=== PATIENT | male | born 1935 | race Caucasian/White ===

== ENCOUNTER → 2016-11-29 | Outpatient (CLI) | payer OTHER ==
[~2016-11-29] MED LIST: ASCA500 PO; CEPH500C PO; CHOL1000 PO; COEN75CA PO; DEXAMETHASONE SOD INJ 4 MG/ML VIAL ONE; LISI20TA3 PO; MULT-506 PO; OMEG10007 PO
== END | disposition home or self-care (01) ==
LOC: C.CPL 12:08
PROVIDERS: ATTEND Plastic Surgery
DX: Z01.810 Encounter for preprocedural cardiovascular examination (principal); Z01.812 Encounter for preprocedural laboratory examination; R00.1 Bradycardia, unspecified

== ENCOUNTER → 2016-12-09 | Day surgery (SDC) | payer OTHER ==
[2016-11-29 15:03] VITALS: BMI 23.0
[2016-12-03 11:54] VITALS: Ht 180.3 cm; Wt 75.9 kg
[~2016-12-09] VITALS: Ht 180.3 cm; Wt 75.9 kg
[~2016-12-09] MED LIST changes: +ACETAMINOPHEN 325 MG TAB PO PRN; +ATROPINE SULFATE 0.1 MG/ML 5ML SYR IV PRN; +BUPIVACAINE 0.25% 2.5MG/ML PF 10 ML VIAL INFIL ONE; +CEFAZOLIN 2000 MG/60 ML D5W IV SCH; -DEXAMETHASONE SOD INJ 4 MG/ML VIAL ONE; +EpHEDrine SULFATE INJ 50 MG/ML AMP IV PRN; +FENTANYL CITRATE INJ 50 MCG/1 ML 2 ML VIAL IV PRN; +FENTANYL CITRATE INJ 50 MCG/1 ML 2 ML VIAL ONE; +GENTIAN VIOLET TOP SOLN 60 APPLN/59 ML BTL TOP ONE; +HYDROmorphone INJ 1 MG/ML SYR IV PRN; +LACTATED RINGER'S 1000ML 1,000 ML IV SCH; +LIDOCAINE HCL 2% 2 ML VIAL (20MG/ML) ONE; +LIDOCAINE/EPINEPHRINE 1% INJ 50 ML VIAL ONE; +METOCLOPRAMIDE HCL INJ 5 MG/ML 2 ML VIAL IV PRN; +MIDAZOLAM HCL 1 MG/ML 2ML VIAL ONE; +ONDANSETRON INJ 2 MG/ML 2 ML VIAL IV PRN; +ONDANSETRON INJ 2 MG/ML 2 ML VIAL ONE; +OXYCODONE/ACETAMINOPHEN 5-325 TAB PO PRN; +PATIENT'S ALLERGY INFO NEEDS ENTERED SCH; +POVIDONE-IODINE OP SOLN 30 ML BTL ONE; +PROPOFOL IV EMULSION 10 MG/ML 20 ML VIAL IV ONE; +SODIUM BICARBONATE 4.2% INJ 10 ML SYR IV ONE; +SODIUM CHLORIDE 0.9% 1000ML 1,000 ML IV SCH
--- NOTE | 2016-12-09 06:52 | History & Physical Bridge - [place] ---
H&P Re-Evaluation Bridge Note: I have examined the patient, reviewed the History & Physical and in the interval since the performance of the History & Physical I have noted the following changes of clinical significance: No changes noted
--- NOTE | 2016-12-09 09:30 | [facility] Post Operative Brief Note ---
Immediate Operative Summary Operative Date Dec 09, 2016. Pre-Operative Diagnosis Squamous Cell Carcinoma of Skin of Face Post-Operative Diagnosis Same Procedure(s) Performed Left Forehead And Nasal Dorsum Squamous Cell Carcinomas Excision, Frozen Section, Full Thickness Graft Surgeon Dr. Pierce Manager Molecular Surgeon(s) Johan Horton PA-C Estimated Blood Loss 10 mL Findings SCC in situ left forehead, margins negative BCC nasal dorsum with positive 6 o'clock margin, final margins negative Specimens A. Squamous Cell Carcinoma Insitu Left Forehead - Suture elias 12 o'clock; sent as frozen section B. Squamous Cell Carcinoma Nasal Dorsum - Suture elias 12 o'clock; sent as frozen section C. Re-Excision 4 to 8 o'clock Nasal Dorsum - sent as frozen section Anesthesia local with sedation Complication(s) None Disposition Recovery Room / PACU
[2016-12-09 09:38] VITALS: TEMP 36.9
--- NOTE | 2016-12-09 09:39 | Discharge Instructions ---
Discharge Instructions Date of Service Dec 09, 2016. Admission Reason for Admission: Squamous Cell Ca Of Skin Of Face Discharge Discharge Diagnosis / Problem: squamous cell ca of face Discharge Goals Goal(s): Decrease discomfort Activity Recommendations Activity Limitations: per Instructions/Follow-up section ACTIVITY RECOMMENDATIONS: __Normal activities _x_No bending, lifting or straining __No driving _x_Driving allowed when you are off pain medications if you have no visual disturbances __Walking permitted __You should have help at home for ___ days DRESSINGS: __No dressings required __Keep dressings dry/in place until first office visit __Remove dressings ___ and leave dressings off __Apply ice ___ days _x_Remove outer gauze dressing tomorrow. Leave everything else in place until your office visit __Apply antibiotic ointment (Bacitracin, Neosporin, etc) to wounds 3-4 times/ day for 10 days BATHING: _x_Keep dressings dry _x_Sponge bathing permitted __Showering permitted _x_No swimming, hot tubs or soaking in a tub MEDICATIONS: Resume previous medications unless instructed otherwise by your surgeon. _x_Do not use aspirin, Motrin, Advil or Ibuprofen as these may promote bleeding. Please use Tylenol. _x_Prescription(s) provided:Endocet was provided at your last office visit. You are given a prescription for antibiotics today. Please start them today OTHER INSTRUCTIONS: __Record drain output 2-3 times per day SPECIAL CARE INSTRUCTIONS: * It is normal to have a mild fever after surgery. If your temperature is higher than 101.5 degrees F, please call the office at [phone]. * Constipation is a typical side effect of pain medication. An over-the- counter stool softener will help relieve this. * Leaking around surgical drains may occur and should not cause concern. Sometimes these drains become clogged. If this happens, remove the bulb and milk the clot out of the tube, then replace the bulb. * Drainage from wounds after liposuction is normal and should be expected. Garments will become soiled. You should protect furniture and bedding. This drainage should mostly subside within 2-3 days. Leave garments in place unless instructed to remove them. * If you have unusual drainage from a wound or are concerned you have an infection or have any questions or concerns, please call the office at [phone]. FOLLOW UP VISIT: If not already scheduled, please call the office, , when you return home after surgery to schedule an appointment to be seen in _5-7__ days. . Current Hospital Diet Patient's current hospital diet: Discharge Diet Recommended Diet: Regular Diet Procedures Procedures Performed: Left Forehead And Nasal Dorsum Squamous Cell Carcinomas Excision, Frozen Section, Full Thickness Graft Pending Studies Studies pending at discharge: yes List of pending studies: pathology Medical Emergencies . Who to Call and When: Medical Emergencies: If at any time you feel your situation is an emergency, please call 911 immediately. . Non-Emergent Contact Non-Emergency issues call your: Primary Care Provider, Surgeon . "Provider Documentation" section prepared by Kaley Horton. VTE Core Measure Inpt VTE Proph given/why not?: SCD's [place] Drug Monitoring Program Search Results: no issues identified
[2016-12-09 10:04] VITALS: BP 176/85; PULSE 72; O2SAT 98
--- NOTE | 2016-12-09 10:12 | Anesthesia Progress Nt - [facility] ---
Anesthesia Post Op Note Date & Time Dec 09, 2016 at 10:12 Vital Signs Pain Intensity: 0 Vital Signs Past 12 Hours Date Time Temp Pulse Resp B/P Pulse Ox O2 Delivery O2 Flow Rate FiO2 12/09/16 10:04 72 16 176/85 98 Room Air 12/09/16 09:38 36.9 64 18 192/83 97 Room Air 12/09/16 06:40 36.5 66 16 188/86 97 Room Air Notes Mental Status: alert / awake / arousable, participated in evaluation Pt Amnestic to Procedure: Yes Nausea / Vomiting: adequately controlled Pain: adequately controlled Airway Patency, RR, SpO2: stable & adequate BP & HR: stable & adequate Hydration State: stable & adequate Anesthetic Complications: no major complications apparent
--- NOTE | 2016-12-09 10:51 | OPERATIVE REPORT ---
DATE OF OPERATION: 12/09/2016 PREOPERATIVE DIAGNOSES: Squamous cell carcinoma in situ, left forehead; squamous cell carcinoma nasal dorsum. POSTOPERATIVE DIAGNOSES: Squamous cell carcinoma in situ, left forehead; basal cell carcinoma nasal dorsum. PROCEDURE: Excision of malignant skin lesions left forehead and nasal dorsum with frozen section and full-thickness skin graft reconstruction. SURGEON: Dr. Cele Pierce. ASBESTOS SIDING INSTALLER: Kaley Horton PA-C. ANESTHESIA: Local with sedation. COMPLICATIONS: None. INDICATION FOR PROCEDURE: The patient is a 81-year-old male with history of metastatic squamous cell carcinoma, who was referred to my office by Dr. Wolf with squamous cell carcinoma in situ of the left forehead and superficially invasive squamous cell carcinoma of the nasal dorsum with positive deep margin. He was initially referred for Mohs surgery given his history, but due to insurance constraints, he was unable to have the Mohs procedure performed. We, therefore, elected to proceed with excision with frozen section in the operating room. BRIEF DESCRIPTION OF THE PROCEDURE: The risks, benefits and alternatives of the procedure were explained to the patient who agreed and signed consent. He was identified and marked in the preoperative holding area. Surgical sites were confirmed by the patient prior to administering sedation. He was brought to the operating room where he was positioned supine and placed under sedation without incident. Surgical sites were prepped and draped sterilely. A timeout procedure was performed. I began with the squamous cell carcinoma in situ of the left forehead. The lesion was marked with a margin of clinically normal skin surrounding it. 1% lidocaine with epinephrine mixed with 0.25% Marcaine plain was used to anesthetize the area. A 15-blade scalpel made the circular skin incision. The lesion was removed with some underlying subcutaneous fat. A suture marked 12 o'clock position and the lesion was sent for frozen section. Hemostasis was achieved with electrocautery. Maximal excision diameter was 2.5 cm. Attention was then turned to the lesion of the nasal dorsum. A margin of skin surrounding the shave biopsy site and healing ulceration was marked. There was an area of excoriation inferiorly, which I was uncertain whether this was part of the lesion and so it was not initially taken at the initial excision. The excision was marked and injected with 1% lidocaine with epinephrine mixed with 0.25% Marcaine plain. A 15 blade scalpel made the incision and the lesion was removed with underlying subcutaneous fat. Of note, there was very minimal subcutaneous fat and the skin was actually quite thin in this location. Suture marked 12 o'clock and the lesion was sent for frozen section. Hemostasis was achieved with electrocautery. Frozen section results showed that the squamous cell carcinoma in situ of the left forehead had been completely excised, although there were some actinic changes in the periphery. Clinically, the patient had significant actinic damage throughout his entire face. The 6 o'clock margin was noted to be positive on the nasal dorsal lesion and this was actually in fact noted to be basal cell carcinoma. Additional specimen was sent and there was reexcision performed from the 4 to 8 o'clock margin. Maximal excision was 2 cm. Frozen section revealed there was still significant amount of basal cell carcinoma, although all of the margins were negative by at least 1.5 mm per frozen section report. Following this, I contemplated how to perform closure of these 2 lesions. While a flap might have been preferable on the nose, the patient and I had discussed the possibility of using a graft in order to allow for better clinical monitoring for recurrence. Therefore, I elected to graft both sites. The graft was marked for harvest from the left supraclavicular area. An elliptical silvia was made and 1% lidocaine with epinephrine mixed with 0.25% Marcaine plain was used to anesthetize the area. A 15 blade scalpel made the elliptical incision and the graft was removed full-thickness including dermis. The graft was removed and passed off to my physician leasing assistant who defatted graft. Hemostasis was achieved and the wound edges were able to be approximated without tension using 3-0 Vicryl interrupted dermal sutures and 3-0 Monocryl running subcuticular suture. Dermabond was applied. The grafts were inset into each recipient bed and trimmed to size. 4-0 silk sutures were used to create tie-over bolster sutures and 5-0 chromic interrupted sutures were placed in between the silk sutures. Bolsters created of Xeroform and cotton were placed and sutures were tied down. Following this, dry dressings were placed and the patient was transferred to the recovery room in satisfactory condition. Kaley Horton PA-C, was present and scrubbed throughout the entire procedure and was instrumental in assisting with defatting of the graft, donor site closure, and inset of the skin grafts. I attest to the content of the Intraoperative Record and any orders documented therein. Any exceptio ns are noted below.
== END | disposition home or self-care (01) ==
LOC: X.SURG 06:16
PROVIDERS: ATTEND Plastic Surgery
DX: C44.320 Squamous cell carcinoma of skin of unspecified parts of face (principal); C44.321 Squamous cell carcinoma of skin of nose; L57.0 Actinic keratosis; E78.5 Hyperlipidemia, unspecified; I10 Essential (primary) hypertension; Z98.890 Other specified postprocedural states; Z79.82 Long term (current) use of aspirin

== ENCOUNTER → 2018-02-05 | Outpatient (CLI) | payer OTHER ==
[~2018-02-05] MED LIST changes: -ACETAMINOPHEN 325 MG TAB PO PRN; -ATROPINE SULFATE 0.1 MG/ML 5ML SYR IV PRN; -BUPIVACAINE 0.25% 2.5MG/ML PF 10 ML VIAL INFIL ONE; -CEFAZOLIN 2000 MG/60 ML D5W IV SCH; -CEPH500C PO; -EpHEDrine SULFATE INJ 50 MG/ML AMP IV PRN; -FENTANYL CITRATE INJ 50 MCG/1 ML 2 ML VIAL IV PRN; -FENTANYL CITRATE INJ 50 MCG/1 ML 2 ML VIAL ONE; -GENTIAN VIOLET TOP SOLN 60 APPLN/59 ML BTL TOP ONE; -HYDROmorphone INJ 1 MG/ML SYR IV PRN; -LACTATED RINGER'S 1000ML 1,000 ML IV SCH; -LIDOCAINE HCL 2% 2 ML VIAL (20MG/ML) ONE; -LIDOCAINE/EPINEPHRINE 1% INJ 50 ML VIAL ONE; -METOCLOPRAMIDE HCL INJ 5 MG/ML 2 ML VIAL IV PRN; -MIDAZOLAM HCL 1 MG/ML 2ML VIAL ONE; -OMEG10007 PO; -ONDANSETRON INJ 2 MG/ML 2 ML VIAL IV PRN; -ONDANSETRON INJ 2 MG/ML 2 ML VIAL ONE; -OXYCODONE/ACETAMINOPHEN 5-325 TAB PO PRN; -PATIENT'S ALLERGY INFO NEEDS ENTERED SCH; -POVIDONE-IODINE OP SOLN 30 ML BTL ONE; -PROPOFOL IV EMULSION 10 MG/ML 20 ML VIAL IV ONE; -SODIUM BICARBONATE 4.2% INJ 10 ML SYR IV ONE; -SODIUM CHLORIDE 0.9% 1000ML 1,000 ML IV SCH
== END | disposition home or self-care (01) ==
LOC: C.PATHSPEC 17:05
PROVIDERS: ATTEND Dermatology
DX: L81.4 Other melanin hyperpigmentation (principal)

== ENCOUNTER 2022-10-22 05:51 | Inpatient (IN) ==
[2022-10-22] MEDS ORDERED: ACETAMINOPHEN 1,000 MG/100 ML VIAL IV STA (06:22)
[2022-10-22] MEDS ORDERED: ACETAMINOPHEN 1000 MG/100 ML IV IV ONE (06:23)
[2022-10-22] MEDS ORDERED: CEFEPIME 2,000 MG/20 ML VIAL IV STA (06:28)
[2022-10-22] MEDS ORDERED: VANCOMYCIN CONSULT ACTIVE PRN (06:28)
[2022-10-22] MEDS ORDERED: VANCOMYCIN HCL 1,500 MG in SODIUM CHLORIDE 0.9% 500 ML IV STA (06:28)
[2022-10-22] MEDS ORDERED: SODIUM CHLORIDE 0.9% 1000ML 1,000 ML IV SCH (06:30)
--- NOTE | 2022-10-22 06:39 | Emergency Department Note ---
Impression & Plan Fever, AMS (altered mental status), Fall, Elevated troponin ED Provider Note INFORMANT: Patient and the ED nurse who took the report from EMS ED PROVIDER(S): Ari Spencer DO CHIEF COMPLAINT: Fall, altered mental status PLAN: Disposition: Admission Condition: Stable Outpatient prescription management: none Referral: I spoke with the hospitalist, who will see the patient for admission/observation and further evaluation and consultation. MEDICAL DECISION MAKING: This is a 87-year-old male who presents to the ED via EMS from a local nursing facility. The patient reportedly fell this morning. He was also not acting his normal self. He was weak. He had a fever. Temperature here was 39.8. Oxygen saturations are 92%. He does have a mild cough on my exam. He was found to be hypertensive here today as well is mildly tachycardic. The patient is a poor hi storian and provides no specific complaints although he does answer basic questions appropriately. The patient was found to have a small abrasion in the right occipital area. No hematoma. The patient denies any headaches. His physical exam shows a systolic ejection murmur. He mild cough, no other specific findings on my exam other than some mild dry mucous membranes. The patient's EKG shows a sinus tach rate of 104. Lateral ST depressions are noted. Chest x-ray did not show acute process. CBC did not show leukocytosis or anemia. Lactic acid is negative. Procalcitonin was elevated 28.5 which is concerning for infection. Urinalysis did not show an obvious infection. Troponin is elevated at 383. This is concerning for ischemic changes given the patient's ST depressions laterally that appear to be new. Flu, COVID and RSV are negative. Exact cause of the patient's fever is unclear. He does not have abdominal tenderness. No obvious skin infection. No pneumonia or obvious u rinary tract infection. The patient was empirically treated with IV antibiotics including IV cefepime and IV vancomycin. He was given 2 L of normal saline IV. He received additional IV fluids with the antibiotics and Tylenol for more than 30 cc/kg of fluids. I did speak with the hospitalist for who will see the patient further inpatient evaluation and care. Triage Nursing notes reviewed. Vital Signs: reviewed Prior /Outside records reviewed: none Differential diagnosis: Differential includes bacterial infection, viral infection, pneumonia, UTI, cellulitis, intra-abdominal infection, injury, other. Diagnostics, as interpreted by me: 12 lead ECG: Sinus tach at a rate of 104. No ST elevation. No PVCs. Lateral ST depressions are new. Normal QTC. Cardiac Monitoring: [none] Medical decision rules: [none] Imaging studies: No acute disease. No pneumonia or pneumothorax. Procedures: none. Critical care: none. HPI: See MDM above. PAST MEDICAL HISTORY: See Below PAST SURGICAL HISTORY: See Below SOCIAL HISTORY: See Below HOME MEDICATIONS: See Below ALLERGIES: See Below VITALS: See Below PHYSICAL EXAMINATION: CONSTITUTIONAL/VITAL SIGNS: Reviewed GENERAL: Non-toxic in appearance. INTEGUMENTARY: Warm, dry, and [place]. He was in the lateral lower legs that appears chronic in nature. HEAD: Normocephalic. EYES: without scleral icterus. ENT/OROPHARYNX: clear and slightly dry. RESPIRATORY: No increased work of breathing. Lungs clear. CARDIOVASCULAR: Regular rate. Regular rhythm. CASIMIRO. GI/ABDOMEN: Soft and nontender. . EXTREMITIES: Normal NEUROLOGICAL: Intact without focal deficits. PSYCHIATRIC: Normal affect. MUSCULOSKELETAL: Normal for age. TRIAGE NURSING DOCUMENTATION REVIEWED. Past Med/Surg History Social History Smoking Status: Former smoker Feels Safe at Home: Yes Allergies Allergies Allergy/AdvReac Type Severity Reaction Status Date / Time No Known Allergies Allergy Unverified 12/09/16 06:36 Home Meds Home Medications Medication Instructions Recorded Confirmed Ascorbic Acid (Vitamin C) 1 tab PO DAILY ##0 11/29/16 CHOLECALCIFEROL (VITAMIN D3) 1 tab PO DAILY ##0 11/29/16 COENZYME Q10 (UBIDECARENONE) (CO 1 cap PO DAILY ##0 11/29/16 Q-10) LISINOPRIL (PRINIVIL) 20 mg PO HS ##0 11/29/16 Multivitamin 1 tab PO DAILY ##0 11/29/16 Results & Data (ED) Vital Signs Vital Signs - 24 hr 10/22/22 05:57 10/22/22 06:02 10/22/22 06:14 Temperature 37.2 C 39.8 C H Temperature Source Oral Axillary Pulse Rate Pulse Rate [Right Finger] 103 H Pulse Rhythm Pulse Rhythm [Right Finger] Pulse Strength [Right Finger] Respiratory Rate 22 Respiratory Effort / Characteristics Respiratory Depth Shallow Respiratory Pattern Blood Pressure [Right Arm] 172/81 H Blood Pressure Mean [Right Arm] 111 Blood Pressure Position [Right Arm] Lying Pulse Oximetry 92 Oxygen Delivery Method Room Air Oxygen Flow Rate Sepsis Recent Fever Within 48 Hours Yes Sepsis New/Unexplained Change in Mental Status Yes Sepsis Action Taken by Nursing No Action Required 10/22/22 06:47 10/22/22 06:47 10/22/22 06:48 Temperature Temperature Source Pulse Rate 88 88 Pulse Rate [Right Finger] Pulse Rhythm Regular Regular Pulse Rhythm [Right Finger] Pulse Strength [Right Finger] Respiratory Rate 20 20 Respiratory Effort / Characteristics Respiratory Depth Respiratory Pattern Blood Pressure [Right Arm] Blood Pressure Mean [Right Arm] Blood Pressure Position [Right Arm] Pulse Oximetry 92 92 93 Oxygen Delivery Method Room Air Room Air Room Air Oxygen Flow Rate 0 Sepsis Recent Fever Within 48 Hours Sepsis New/Unexplained Change in Mental Status Sepsis Action Taken by Nursing 10/22/22 06:49 10/22/22 06:57 10/22/22 07:40 Temperature 39.3 C H Temperature Source Axillary Pulse Rate Pulse Rate [Right Finger] 90 86 83 Pulse Rhythm Pulse Rhythm [Right Finger] Regular Regular Pulse Strength [Right Finger] Normal Normal Respiratory Rate 22 24 22 Respiratory Effort / Characteristics Non-Labored Spontaneous Non-Labored Respiratory Depth Normal Shallow Normal Respiratory Pattern Regular Regular Blood Pressure [Right Arm] 126/57 L 126/57 L 104/49 L Blood Pressure Mean [Right Arm] 80 80 67 Blood Pressure Position [Right Arm] Semi-fowlers Lying Pulse Oximetry 92 93 93 Oxygen Delivery Method Room Air Room Air Room Air Oxygen Flow Rate Sepsis Recent Fever Within 48 Hours Sepsis New/Unexplained Change in Mental Status Sepsis Action Taken by Nursing Laboratory Data 10/22/22 06:05 10/22/22 06:05 Lab Results 10/22/22 10/22/22 10/22/22 Range/Units 06:05 06:05 06:05 WBC 5.86 (4.8-10.8) K/ul RBC 4.62 L (4.63-6.08) M/uL Hgb 13.2 L (14.0-18.0) g/dl Hct 39.1 L (40.1-51.0) % MCV 84.6 (80.0-100.0) fL MCH 28.6 (25.0-34.0) pg MCHC 33.8 (32.0-36.0) g/dL RDW Std Deviation 42.7 (36.4-46.3) fL RDW Coeff of Jorge Luis 13.8 (11.5-14.5) % Plt Count 206 (130-400) K/uL MPV 10.3 (9.4-12.4) fL Immature Gran % (Auto) 0.5 % Neut % (Auto) 94.6 % Lymph % (Auto) 3.6 % Yell % (Auto) 1.0 % Eos % (Auto) 0.0 % Baso % (Auto) 0.3 % Neut # (Auto) 5.54 (1.4-6.5) K/uL Lymph # (Auto) 0.21 L (1.2-3.4) K/uL Yell # (Auto) 0.06 L (0.24-0.82) K/uL Eos # (Auto) 0.00 (0-0.50) K/uL Baso # (Auto) 0.02 (0-0.2) K/uL Immature Gran # (Auto) 0.03 H (0.00-0.02) K/uL PT 11.4 (9.0-12.0) Seconds INR 1.1 (0.9-1.1) APTT 26.5 (21.0-31.0) Seconds PTT Ratio 1.0 Sodium 142 (136-145) mmol/L Potassium 3.5 (3.5-5.1) mmol/L Chloride 104 (98-107) mmol/L Carbon Dioxide 28 (21-32) mmol/L Anion Gap 10 (3-11) BUN 24 H (6-23) mg/dl Creatinine 1.12 (0.6-1.4) mg/dl Est Cr Clr Drug Dosing 46.7 ml/min Est GFR ( Amer) 69.1 ml/min Est GFR (Non-Af Amer) 59.6 ml/min BUN/Creatinine Ratio 21.4 H (10-20) Glucose 100 H (70-99(Fasting)) mg/dl Lactate (0.4-2.0) mmol/L Calcium 9.0 (8.5-10.1) mg/dl Magnesium 1.5 L (1.7-2.4) mg/dl Total Bilirubin 1.3 H (0.2-1.0) mg/dl AST 25 (13-39) U/L ALT 20 (7-52) U/L Alkaline Phosphatase 110 H (34-104) U/L Troponin I High Sens 383.8 H* (0-20) pg/ml B-Natriuretic Peptide (0-100) pg/ml Total Protein 6.9 (6.0-8.3) gm/dl Albumin 3.8 (3.4-5.0) gm/dl Globulin 3.1 (2.5-4.0) gm/dl Albumin/Globulin Ratio 1.2 (0.9-2) Procalcitonin (0-0.5) ng/ml Urine Color Urine Appearance (Clear) Urine pH (4.5-7.5) Ur Specific [place] (1.000-1.030) Urine Protein (Negative) Urine Glucose (UA) (Negative) Urine Ketones (Negative) Urine Blood (Negative) Urine Nitrite (Negative) Urine Bilirubin (Negative) Urine Urobilinogen (Negative) Ur Leukocyte Esterase (Negative) Urine WBC (Auto) (0-5) /hpf Urine RBC (Auto) (0-4) /hpf U Hyaline Cast (Auto) (0-5) /lpf U Epithel Cells (Auto) (0-5) /lpf Urine Bacteria (Auto) (Negative) SARS-CoV-2 (PCR) (Negative) Influenza Type A (PCR) (Neg) Influenza Type B (PCR) (Neg) RSV (RT-PCR) (Neg) 10/22/22 10/22/22 10/22/22 Range/Units 06:05 06:05 06:05 WBC (4.8-10.8) K/ul RBC (4.63-6.08) M/uL Hgb (14.0-18.0) g/dl Hct (40.1-51.0) % MCV (80.0-100.0) fL MCH (25.0-34.0) pg MCHC (32.0-36.0) g/dL RDW Std Deviation (36.4-46.3) fL RDW Coeff of Jorge Luis (11.5-14.5) % Plt Count (130-400) K/uL MPV (9.4-12.4) fL Immature Gran % (Auto) % Neut % (Auto) % Lymph % (Auto) % Yell % (Auto) % Eos % (Auto) % Baso % (Auto) % Neut # (Auto) (1.4-6.5) K/uL Lymph # (Auto) (1.2-3.4) K/uL Yell # (Auto) (0.24-0.82) K/uL Eos # (Auto) (0-0.50) K/uL Baso # (Auto) (0-0.2) K/uL Immature Gran # (Auto) (0.00-0.02) K/uL PT (9.0-12.0) Seconds INR (0.9-1.1) APTT (21.0-31.0) Seconds PTT Ratio Sodium (136-145) mmol/L Potassium (3.5-5.1) mmol/L Chloride (98-107) mmol/L Carbon Dioxide (21-32) mmol/L Anion Gap (3-11) BUN (6-23) mg/dl Creatinine (0.6-1.4) mg/dl Est Cr Clr Drug Dosing ml/min Est GFR ( Amer) ml/min Est GFR (Non-Af Amer) ml/min BUN/Creatinine Ratio (10-20) Glucose (70-99(Fasting)) mg/dl Lactate 1.6 (0.4-2.0) mmol/L Calcium (8.5-10.1) mg/dl Magnesium (1.7-2.4) mg/dl Total Bilirubin (0.2-1.0) mg/dl AST (13-39) U/L ALT (7-52) U/L Alkaline Phosphatase (34-104) U/L Troponin I High Sens (0-20) pg/ml B-Natriuretic Peptide 502 H (0-100) pg/ml Total Protein (6.0-8.3) gm/dl Albumin (3.4-5.0) gm/dl Globulin (2.5-4.0) gm/dl Albumin/Globulin Ratio (0.9-2) Procalcitonin 28.59 H (0-0.5) ng/ml Urine Color Urine Appearance (Clear) Urine pH (4.5-7.5) Ur Specific [place] (1.000-1.030) Urine Protein (Negative) Urine Glucose (UA) (Negative) Urine Ketones (Negative) Urine Blood (Negative) Urine Nitrite (Negative) Urine Bilirubin (Negative) Urine Urobilinogen (Negative) Ur Leukocyte Esterase (Negative) Urine WBC (Auto) (0-5) /hpf Urine RBC (Auto) (0-4) /hpf U Hyaline Cast (Auto) (0-5) /lpf U Epithel Cells (Auto) (0-5) /lpf Urine Bacteria (Auto) (Negative) SARS-CoV-2 (PCR) (Negative) Influenza Type A (PCR) (Neg) Influenza Type B (PCR) (Neg) RSV (RT-PCR) (Neg) 10/22/22 10/22/22 Range/Units 06:30 06:40 WBC (4.8-10.8) K/ul RBC (4.63-6.08) M/uL Hgb (14.0-18.0) g/dl Hct (40.1-51.0) % MCV (80.0-100.0) fL MCH (25.0-34.0) pg MCHC (32.0-36.0) g/dL RDW Std Deviation (36.4-46.3) fL RDW Coeff of Jorge Luis (11.5-14.5) % Plt Count (130-400) K/uL MPV (9.4-12.4) fL Immature Gran % (Auto) % Neut % (Auto) % Lymph % (Auto) % Yell % (Auto) % Eos % (Auto) % Baso % (Auto) % Neut # (Auto) (1.4-6.5) K/uL Lymph # (Auto) (1.2-3.4) K/uL Yell # (Auto) (0.24-0.82) K/uL Eos # (Auto) (0-0.50) K/uL Baso # (Auto) (0-0.2) K/uL Immature Gran # (Auto) (0.00-0.02) K/uL PT (9.0-12.0) Seconds INR (0.9-1.1) APTT (21.0-31.0) Seconds PTT Ratio Sodium (136-145) mmol/L Potassium (3.5-5.1) mmol/L Chloride (98-107) mmol/L Carbon Dioxide (21-32) mmol/L Anion Gap (3-11) BUN (6-23) mg/dl Creatinine (0.6-1.4) mg/dl Est Cr Clr Drug Dosing ml/min Est GFR ( Amer) ml/min Est GFR (Non-Af Amer) ml/min BUN/Creatinine Ratio (10-20) Glucose (70-99(Fasting)) mg/dl Lactate (0.4-2.0) mmol/L Calcium (8.5-10.1) mg/dl Magnesium (1.7-2.4) mg/dl Total Bilirubin (0.2-1.0) mg/dl AST (13-39) U/L ALT (7-52) U/L Alkaline Phosphatase (34-104) U/L Troponin I High Sens (0-20) pg/ml B-Natriuretic Peptide (0-100) pg/ml Total Protein (6.0-8.3) gm/dl Albumin (3.4-5.0) gm/dl Globulin (2.5-4.0) gm/dl Albumin/Globulin Ratio (0.9-2) Procalcitonin (0-0.5) ng/ml Urine Color Yellow Urine Appearance Clear (Clear) Urine pH 6.0 (4.5-7.5) Ur Specific [place] 1.013 (1.000-1.030) Urine Protein Trace H (Negative) Urine Glucose (UA) Negative (Negative) Urine Ketones Negative (Negative) Urine Blood 2+ H (Negative) Urine Nitrite Negative (Negative) Urine Bilirubin Negative (Negative) Urine Urobilinogen Negative (Negative) Ur Leukocyte Esterase Negative (Negative) Urine WBC (Auto) 1-5 (0-5) /hpf Urine RBC (Auto) 10-30 H (0-4) /hpf U Hyaline Cast (Auto) 1-5 (0-5) /lpf U Epithel Cells (Auto) 5-10 H (0-5) /lpf Urine Bacteria (Auto) Negative (Negative) SARS-CoV-2 (PCR) NEGATIVE (Negative) Influenza Type A (PCR) Negative (Neg) Influenza Type B (PCR) Negative (Neg) RSV (RT-PCR) Negative (Neg) Administered Medications Vancomycin HCl 1,500 mg/ (Sodium Chloride) 530 mls @ 200 mls/hr IV NOW STA Stop: 01/24/23 09:06 Last Admin: 10/22/22 07:34 Dose: 200 mls/hr Documented By: K Discontinued Medications Acetaminophen (Acetaminophen 1000 Mg/100 Ml Iv) Confirm Administered Dose 1,000 mg IV .STK-MED ONE Stop: 10/22/22 06:24 Last Admin: 10/22/22 06:26 Dose: Not Given Documented By: Aspirin (Aspirin Chew 324 Mg) 324 mg PO NOW STA Stop: 10/22/22 07:27 Last Admin: 10/22/22 07:39 Dose: 324 mg Documented By: K Acetaminophen (Ofirmev) 1,000 mg in 100 mls @ 400 mls/hr IV NOW STA Stop: 10/22/22 06:36 Last Infusion: 10/22/22 06:46 Dose: 0 mls/hr Documented By: Admin: 10/22/22 06:25 Dose: 400 mls/hr Documented By: Sodium Chloride (Nss 1000ml) 1,000 mls @ 999 mls/hr IV .Q1H1M CARA Stop: 10/22/22 07:30 Last Admin: 10/22/22 06:53 Dose: 125 mls/hr Documented By: Cefepime HCl (Maxipime) 2,000 mg in 20 mls @ 5 mls/min IV NOW STA; Protocol Stop: 10/22/22 06:31 Last Admin: 10/22/22 06:53 Dose: 5 mls/min Documented By: Imaging Data Radiologist's Impression: Chest X-Ray 10/22/22 06:16 XR chest 1V portable HISTORY: 87 years-old Male Sepsis acute sepsis COMPARISON: PET CT 07/01/2015 TECHNIQUE: AP view of the chest FINDINGS: Cardiac silhouette is mildly enlarged. No pneumothorax, pleural effusion or overt pulmonary edema. Mild right hemidiaphragmatic elevation with chronic interstitial coarsening. Right apical opacity may represent summation density versus scarring. Degenerative changes of the shoulders and spine. Healed chronic fracture deformity of the posterolateral left eighth rib. IMPRESSION: No acute process identified. ACT 112: Negative or not required by law. The above report was generated using voice recognition software. It may contain grammatical, syntax or spelling errors. Electronically signed by: Thai Lee M.D. 10/22/2022 7:11 AM Discharge Plan Visit Data Chief Complaint: Fall Stated Complaint: Nausea, AMS ED Provider: Ari Spencer Discharge Problem: Fever, AMS (altered mental status), Fall, Elevated troponin Patient Disposition: Being Evaluated by Hospitalist Forms Stand Alone Forms: [facility] Prescriptions Prescriptions: No Action Ascorbic Acid (Vitamin C) 500 MG tablet 1 tab PO DAILY Qty: 0 CHOLECALCIFEROL (VITAMIN D3) 1,000 UNIT tablet 1 tab PO DAILY Qty: 0 COENZYME Q10 (UBIDECARENONE) (CO Q-10) 75 MG capsule 1 cap PO DAILY Qty: 0 LISINOPRIL (PRINIVIL) 20 MG tablet 20 mg PO HS Qty: 0 Multivitamin tablet 1 tab PO DAILY Qty: 0 Referrals Referrals: Priscila [email or web address] [Non-Staff] -
[2022-10-22 06:46] LABS: Hematocrit (blood only) 39.1 % (40.1-51.0); Hemoglobin 13.2 g/dl (14.0-18.0); Mean Corpuscular Hemoglobin 28.6 pg (25.0-34.0); Mean Corpuscular Hgb Conc 33.8 g/dL (32.0-36.0); Mean Corpuscular Volume 84.6 fL (80.0-100.0); Mean Platelet Volume 10.3 fL (9.4-12.4); Platelet Count 206 K/uL (130-400); RDW Coefficient of Variation 13.8 % (11.5-14.5); RDW Standard Deviation 42.7 fL (36.4-46.3); Red Blood Count 4.62 M/uL (4.63-6.08); White Blood Count 5.86 K/ul (4.8-10.8)
[2022-10-22 06:56] LABS: Albumin Level 3.8 gm/dl (3.4-5.0); Bilirubin,Total 1.3 mg/dl (0.2-1.0); INR 1.1 (0.9-1.1); Magnesium 1.5 mg/dl (1.7-2.4); Partial Thromboplastin Time 26.5 Seconds (21.0-31.0); Potassium 3.5 mmol/L (3.5-5.1); Prothrombin Time 11.4 Seconds (9.0-12.0)
[2022-10-22 07:02] LABS: Albumin Globulin Ratio 1.2 (0.9-2); BUN Creatinine Ratio 21.4 (10-20); Creatinine Clr Calc Pharmacy 46.7 ml/min; Est GFR (African American) 69.1 ml/min; Est GFR (Non-African American) 59.6 ml/min; Globulin 3.1 gm/dl (2.5-4.0); Total Protein 6.9 gm/dl (6.0-8.3)
[2022-10-22 07:08] LABS: Troponin I High Sensitivity 383.8 pg/ml (0-20)
[2022-10-22 07:09] LABS: Appearance Urine Clear (Clear); Bacteria Urine Automated Negative (Negative); Bilirubin Urine Negative (Negative); Blood Urine 2+ (Negative); Color Urine Yellow; Glucose Urine UA Negative (Negative); Ketones Urine Negative (Negative); Leukocyte Esterase Urine Negative (Negative); Nitrite Urine Negative (Negative); Protein Urine Trace (Negative); Specific Gravity Urine 1.013 (1.000-1.030); Urobilinogen Urine Negative (Negative)
--- NOTE | 2022-10-22 07:12 | XRay Report ---
XR chest 1V portable HISTORY: 87 years-old Male Sepsis acute sepsis COMPARISON: PET CT 07/01/2015 TECHNIQUE: AP view of the chest FINDINGS: Cardiac silhouette is mildly enlarged. No pneumothorax, pleural effusion or overt pulmonary edema. Mi ld right hemidiaphragmatic elevation with chronic interstitial coarsening. Right apical opacity may r epresent summation density versus scarring. Degenerative changes of the shoulders and spine. Healed c hronic fracture deformity of the posterolateral left eighth rib. IMPRESSION: No acute process identified. ACT 112: Negative or not required by law. The above report was generated using voice recognition software. It may contain grammatical, syntax o r spelling errors. Electronically signed by: Thai Lee M.D. 10/22/2022 7:11 AM
[2022-10-22 07:18] LABS: Basophils # (auto) 0.02 K/uL (0-0.2); Basophils % (auto) 0.3 %; Immature Granulocytes # (auto) 0.03 K/uL (0.00-0.02); Immature Granulocytes % (auto) 0.5 %; Lymphocytes # (auto) 0.21 K/uL (1.2-3.4); Lymphocytes % (auto) 3.6 %; Monocytes # (auto) 0.06 K/uL (0.24-0.82); Neutrophils # (auto) 5.54 K/uL (1.4-6.5); Neutrophils % (auto) 94.6 %
[2022-10-22] MEDS ORDERED: ASPIRIN CHEW 324 MG PO STA (07:26)
[2022-10-22 07:49] LABS: Influenza A virus by PCR Negative (Neg); Influenza B virus by PCR Negative (Neg); RSV by PCR Negative (Neg); SARS CoV2 RNA(COVID-19) Ceph NEGATIVE (Negative)
[2022-10-22] MEDS: SODIUM CHLORIDE 0.9% 1000ML 1,000 ML IV SCH ×4 (08:20→22:10)
[2022-10-22] MEDS: MAGNESIUM SULFATE / D5W 1 GM/100 ML BAG IV SCH ×2 (09:30→12:11)
--- NOTE | 2022-10-22 09:40 | History & Physical Report ---
Date of Service October 22, 2022 Assessment & Plan (1) Sepsis: Plan: Admit to [facility] w/ tele Patient presenting from [facility] for evaluation after fall and AMS In the ED, patient found to be febrile at 39.3, tachycardic in the low 100s, procalcitonin 28.5. BP stable, normal lactic acid Noted POLST form states Comfort Measures Only -- Dr. An discussed with patient's POA Iqra who is agreeable to have the patient admitted to treat a potential infection however would decline any invasive procedures. (2) Cholangitis: (3) Cholecystitis: Plan: CT abd/pelvis shows evidence of possible ascending cholangitis and acute cholecystitis LFTs essentially WNL Received cefepime and Vanco in the ED, will change to Zosyn and Vanco History of pancreatic adenocarcinoma s/p CBD stent 03/2022. Per CT scan, stent appears to be in good position and draining. Follow blood cultures GI and general surgery consults, case discussed with JORDAN Person and Lissa Bowers PA-C. Likely no invasive procedures per previous discussion with POA however appreciate consultants' recommendations and options. (4) Aspiration pneumonia: Plan: CT ABD/pelvis showing patchy densities within the lung bases most pronounced within the right lower lobe. This favors a pneumonia and could be secondary to aspiration. The right lower lobe bronchi are partially opacified. On [facility] Speech therapy consult (5) Elevated troponin: Plan: HS troponin 383 --> 1131 --> 1313 No reports of chest pain, EKG shows mild ST depressions in lateral leads -- ? Tachycardia induced. ST depressions resolved on repeat EKG. Likely demand ischemia in the setting of acute illness Echo does not show wall motion abnormality If troponins continue to climb, consider IV heparin and cardiology consult (6) Pancreatic adenocarcinoma: Plan: Diagnosed 03/2022 S/p common bile duct stent Declined further treatment (7) HTN (hypertension): Plan: BP controlled, continue lisinopril (8) Hypothyroidism: Plan: Update TSH Continue levothyroxine accordingly (9) Dementia: Plan: Continue donepezil DVT PROPHYLAXIS SQ Lovenox I spent a total of 75 minutes coordinating, documenting, and providing care for this patient excluding time spent in the performance of separately billed services. This included personally reviewing all current laboratories and imaging studies, medication reconciliation, outpatient chart review, and discussion with specialists. History of Present Illness Chief Complaint: Fall, altered mental status Primary Care Provider: JORDAN Tamayo 87-year-old male with PMH dementia, pancreatic adenocarcinoma, hypothyroidism, HTN, GERD, and other problems listed below who presents to the ED for evaluation after fall and altered mental status. Patient currently resides at [facility]. Due to underlying dementia, history is limited from the patient. History obtained from review of outpatient records and prison staff. Patient had an unwitnessed fall at the facility. He was noticed to have increased confusion from baseline. There was also fever, nausea, vomiting reported. EMS was called and patient was brought to the ED for further evaluation. In the ED, patient is slightly febrile at 39.3, mildly tachycardic in the low 100s. No leukocytosis, lactic acid normal. HS troponin 383, procalcitonin 28.5. No obvious infectious source identified at this time. Patient was given Tylenol, cefepime, Vanco, IVF. Allergies Allergy/AdvReac Type Severity Reaction Status Date / Time No Known Allergies Allergy Unverified 12/09/16 06:36 Home Medications Medication Instructions Recorded Confirmed Type cholecalciferol (vitamin D3) 50 50 mcg PO DAILY 10/22/22 10/22/22 History mcg (2,000 unit) tablet (Vitamin D3) donepezil 5 mg tablet 5 mg PO DAILY 10/22/22 10/22/22 History levothyroxine 50 mcg tablet 50 mcg PO DAILY 10/22/22 10/22/22 History lisinopril 5 mg tablet 5 mg PO DAILY 10/22/22 10/22/22 History mirtazapine 7.5 mg tablet 7.5 mg PO HS 10/22/22 10/22/22 History multivitamin-iron (hematinic) 1 tab PO DAILY 10/22/22 10/22/22 History pantoprazole 40 mg tablet,delayed 40 mg PO DAILY 10/22/22 10/22/22 History release potassium 99 mg tablet 99 mg PO DAILY 10/22/22 10/22/22 History tamsulosin 0.4 mg capsule 0.4 mg PO DAILY 10/22/22 10/22/22 History Past Med/Surg History Medical History Dementia GERD (gastroesophageal reflux disease) HTN (hypertension) Hypothyroidism Pancreatic adenocarcinoma Surgical History No significant past surgical history Family History Other Family history unobtainable Social History Smoking Status: Former smoker Hx Alcohol Use: No Feels Safe at Home: Yes Review of Systems Review of Systems: Unobtainable due to cognitive status Physical Exam Constitutional: WD/WN, vitals as above Eyes: PERRL, conjunctivae normal, anicteric sclerae ENMT: Ears: no external ear abnormality Nose: no external nose abnormality Mouth: + dry oral mucous membranes Respiratory: normal respiratory effort, lungs clear to auscultation Cardiovascular: Rate/Rhythm: regular rate and regular rhythm Vessels: normal peripheral pulses Extremities: + edema (+1 edema BLE) Gastrointestinal (Abdomen): normal bowel sounds, soft, nontender, no hepatosplenomegaly Musculoskeletal: Extremities: no cyanosis and no clubbing Generally weak throughout Skin: no rashes, warm and dry Chronic venous changes BLE Neurologic: PERRL, EOMI, accommodation nl, no face palsy, no dysarthria Psychiatric: Orientation: alert and oriented to person; + not oriented to place and + not oriented to time Affect: euthymic affect Results & Data Results & Data ([facility]) Vital Signs (Past 12 Hours) Vital Signs Temp Pulse Pulse Resp BP Pulse Ox O2 Del Method 10/22/22 08:20 84 19 116/55 L 93 Room Air 10/22/22 07:40 83 22 104/49 L 93 Room Air 10/22/22 06:57 39.3 C H 86 24 126/57 L 93 Room Air 10/22/22 06:49 90 22 126/57 L 92 Room Air 10/22/22 06:48 93 Room Air 10/22/22 06:47 88 20 92 Room Air 10/22/22 06:47 88 20 92 Room Air 10/22/22 06:14 39.8 C H 10/22/22 05:57 37.2 C 103 H 22 172/81 H 92 Room Air O2 Flow Rate 01/24/23 08:20 10/22/22 07:40 10/22/22 06:57 10/22/22 06:49 10/22/22 06:48 0 10/22/22 06:47 10/22/22 06:47 10/22/22 06:14 10/22/22 05:57 Laboratory Results Short CBC 10/22/22 Range/Units 06:05 WBC 5.86 (4.8-10.8) K/ul Hgb 13.2 L (14.0-18.0) g/dl Hct 39.1 L (40.1-51.0) % Plt Count 206 (130-400) K/uL BMP 10/22/22 06:05 Sodium 142 Potassium 3.5 Chloride 104 Carbon Dioxide 28 BUN 24 H Creatinine 1.12 Glucose 100 H Calcium 9.0 Liver Function 10/22/22 Range/Units 06:05 Total Bilirubin 1.3 H (0.2-1.0) mg/dl AST 25 (13-39) U/L ALT 20 (7-52) U/L Alkaline Phosphatase 110 H (34-104) U/L Albumin 3.8 (3.4-5.0) gm/dl Urine 10/22/22 Range/Units 06:30 Urine Color Yellow Urine Appearance Clear (Clear) Urine pH 6.0 (4.5-7.5) Ur Specific Swink 1.013 (1.000-1.030) Urine Protein Trace H (Negative) Urine Glucose (UA) Negative (Negative) Diagnostic Findings Chest X-Ray 10/22/22 06:16 XR chest 1V portable HISTORY: 87 years-old Male Sepsis acute sepsis COMPARISON: PET CT 07/01/2015 TECHNIQUE: AP view of the chest FINDINGS: Cardiac silhouette is mildly enlarged. No pneumothorax, pleural effusion or overt pulmonary edema. Mild right hemidiaphragmatic elevation with chronic interstitial coarsening. Right apical opacity may represent summation density versus scarring. Degenerative changes of the shoulders and spine. Healed chronic fracture deformity of the posterolateral left eighth rib. IMPRESSION: No acute process identified. ACT 112: Negative or not required by law. The above report was generated using voice recognition software. It may contain grammatical, syntax or spelling errors. Electronically signed by: Thai Lee M.D. 10/22/2022 7:[address] 10/22/22 09:13 CT head/brain wo con CLINICAL HISTORY: 87 years-old Male with fall. Acute head injury status post fall TECHNIQUE: Multiple axial CT images of the head were obtained without contrast. A dose lowering technique was utilized adhering to the principles of ALARA. CT DOSE: 1729.92 mGy.cm COMPARISON: None. FINDINGS: No acute intracranial hemorrhage, midline shift, intracranial mass, hydrocephalus, territorial ischemia or abnormal extra-axial collection. Motion degraded exam. Involutional changes with chronic microvascular ischemic disease. Cerebral vascular calcifications. The calvarium is intact. The paranasal sinuses, mastoid air cells, and middle ear cavities are clear. IMPRESSION: Motion degraded exam. No acute intracranial abnormality or calvarial fracture identified. ACT 112: Negative or not required by law. The above report was generated using voice recognition software. It may contain grammatical, syntax or spelling errors. Electronically signed by: Thai Lee M.D. 10/22/2022 10:19 AM Code Status & VTE Plan Code Status Patient is a DNR as per POLST form that has accompanied the patient. VTE Prophylaxis Plan VTE Prophylaxis will be ordered: Yes Supervising Physician Co-Signing Physician Notes Pt is a 87 y/o M with hx of Pancreatic ca s/p Cholecystoduodenostomy with stent, hypothyroidism, severe dementia, hx of aspiration admitted for recent fall with fever. Spoke to POA (Iqra Torres-friend). Per Iqra, pt is DNR/DNI. No invasive procedure (does not want to under ERCP if it is necessary). Okay with antibiotics. Pts daughter lives in [place]. PE: NAD, well developed HEENT:Dry oropharynx Lungs: CTA, no wheezing or crackles Cardiac: Normal S1/S2 with systolic murmur Abd: ND, soft, NT MSK: b/l trace pitting edema of the LE with chronic skin changes Psych: AAOx1 (only to person)- at his baseline A/P: Fever: -RSV/COVID/Flu: neg -CXR: no acute finding -UA: no obvious sign of infection - Procal is elevated but WBC is normal -will obtain BCx and UCx - start pt on Vanc and zosyn - will get CT abd ---- CT abd showed R lower lobe patchy densities, possible cholecystitis and ascending cholangitis ---- pt already on Vanc and zosyn ---- family did not want any surgical intervention or procedure. However will get GI and Surgery consult to get their recommendation so that the family can make an informed decision Elevated trop: -pt appeared dehydrated during the exam + acute infection - trop trend: 380>1130>1300 - echo showed no wall motion abnormalities thus will hold off on starting on heparin drip ----- but will trend trop S/P fall: -pt does have hx of fall in the past - denied any acute pain - CT head: no acute finding -will get PT/OT Severe dementia with hx of aspiration: -at baseline AAOx1 -does have hx of delirium Pancreatic Ca s/p Cholecystoduodenostomy with stent: -Family and POA did not want further testing or intervention Other chronic conditions: Plan as above Agree with A/P by Olesya ORTEGA
[2022-10-22] MEDS ORDERED: OPTIRAY 350 100ml IV ONE (09:52)
--- NOTE | 2022-10-22 10:20 | CT Scan Report ---
CT head/brain wo con CLINICAL HISTORY: 87 years-old Male with fall. Acute head injury status post fall TECHNIQUE: Multiple axial CT images of the head were obtained without contrast. A dose lowering tech nique was utilized adhering to the principles of ALARA. CT DOSE: 1729.92 mGy.cm COMPARISON: None. FINDINGS: No acute intracranial hemorrhage, midline shift, intracranial mass, hydrocephalus, territorial ischem ia or abnormal extra-axial collection. Motion degraded exam. Involutional changes with chronic microv ascular ischemic disease. Cerebral vascular calcifications. The calvarium is intact. The paranasal sinuses, mastoid air cells, and middle ear cavities are clear . IMPRESSION: Motion degraded exam. No acute intracranial abnormality or calvarial fracture identified . ACT 112: Negative or not required by law. The above report was generated using voice recognition software. It may contain grammatical, syntax o r spelling errors. Electronically signed by: Thai Lee M.D. 10/22/2022 10:19 AM
[2022-10-22] MEDS ORDERED: PIPERACILLIN/TAZOBACTAM 3.375 GM (over 30 mins) IV ONE (10:30)
[2022-10-22] MEDS ORDERED: ACETAMINOPHEN 325 MG TAB PO PRN (10:50)
--- NOTE | 2022-10-22 11:58 | Pharmacy Report ---
Pharmacy PK ABX Note - Date of Service October 22, 2022 - Assessment and Plan Assessment 87 year old M receiving Zosyn and Vancomycin IV for Empiric coverage due fever and procalcitonin of 29.6 on admission. Blood culture still pending. Day # 1 of antimicrobial therapy. Plan Zosyn * 3.375 g IV Q8H for Crcl > 20 ml/min Vancomycin * Loading dose: 1500 mg IV x 1 * Maintenance dose: 1250 mg IV every 24 hours * Regimen is predicted to achieve target AUC/RIOS of 400-600 mg/L.hr * Order level if therapy exceeds 48 hours Pharmacy will continue to follow and will adjust dose/frequency as necessary. Thank you. Pharmacy has transitioned to AUC monitoring for vancomycin. AUC/RIOS is the preferred PK/PD target and is associated with decreased risk of nephrotoxicity compared to traditional trough targets.
[2022-10-22] MEDS: ENOXAPARIN INJ 40 MG/0.4 ML SYR SQ SCH (12:14)
--- NOTE | 2022-10-22 14:32 | Electrocardiogram Report ---
Test Reason : Blood Pressure : / mmHG Vent. Rate : 104 BPM Atrial Rate : 104 BPM P-R Int : 138 ms QRS Dur : 082 ms QT Int : 336 ms P-R-T Axes : 065 019 077 degrees QTc Int : 441 ms Poor data quality, interpretation may be adversely affected Sinus tachycardia Nonspecific ST and T wave abnormality Abnormal ECG When compared with ECG of 29-NOV-2016 12:46, Vent. rate has increased BY [address] now depressed in Lateral leads Confirmed by Killian Hardy ([id number]) on 10/22/2022 2:32:01 PM Referred By: Confirmed By:Carmelo Hardy
--- NOTE | 2022-10-22 14:39 | Electrocardiogram Report ---
Test Reason : Blood Pressure : / mmHG Vent. Rate : 062 BPM Atrial Rate : 062 BPM P-R Int : 152 ms QRS Dur : 086 ms QT Int : 472 ms P-R-T Axes : 056 -12 037 degrees QTc Int : 479 ms Normal sinus rhythm with sinus arrhythmia Nonspecific T wave abnormality Prolonged QT Abnormal ECG When compared with ECG of 22-OCT-2022 05:56, (unconfirmed) Vent. rate has decreased BY [address] no longer depressed in Lateral leads Nonspecific T wave abnormality has replaced inverted T waves in Lateral leads Confirmed by Killian Hardy ([id number]) on 10/22/2022 2:38:57 PM Referred By: [facility] Confirmed By:Carmelo Hardy
--- NOTE | 2022-10-22 14:58 | CT Scan Report ---
ABDOMEN AND PELVIS CT WITH IV CONTRAST CT DOSE: HISTORY: sepsis, hx pancreatic cancer TECHNIQUE: Multiaxial CT images of the abdomen and pelvis were performed following the use of intrave nous contrast. A dose lowering technique was utilized adhering to the principles of ALARA. COMPARISON STUDY: Outside hospital PET/CT 07/01/2015. FINDINGS: Patchy densities within the lung bases most pronounced within the right lower lobe. This fa vors a pneumonia and could be secondary to aspiration. The right lower lobe bronchi are partially opa cified. Suboptimal evaluation of the abdomen and pelvis due to motion artifact. No pneumoperitoneum. No pneumatosis. No suspicious lytic or blastic osseous lesions. The heart is mildly enlarged. Scatter ed hypodense lesions seen within the liver some which demonstrate a small amount peripheral calcifica tion. Dominant lesion within the right hepatic dome measures 5.9 cm. These favor cysts. There is mild periportal edema. There is subtle enhancement within the central intra-/extra hepatic bile ducts bes t seen on image 124. The main portal vein appears patent. There is fullness within the pancreatic hea d which may correspond to the patient's known history of a pancreatic malignancy. However, this is no t well assessed due to the motion artifact at this location. Metallic common bile duct stent appears to be in good position. Trace pneumobilia is noted. There is also gas within the gallbladder and a fe w punctate gallstones. This mild diffuse gallbladder wall thickening with pericholecystic inflammator y change/edema. There is a cholecystoduodenal stent which appears in good position and is likely loyola nt. The main pancreatic duct is distended up to 9 mm. There is atrophy of the pancreatic tail. Bilate ral adrenal gland nodules appear similar to the prior study and measure 2.4 cm on the right and 1.9 c m on the left. Small bilateral peripelvic renal cysts are noted. No hydronephrosis. The spleen is unr emarkable. The superior mesenteric artery and vein appear patent. The bladder is decompressed by Fole y catheter. Small amount of hyperdense fluid within the bladder lumen may represent blood products/he maturia. The bladder wall diffusely thickened. The prostate gland is enlarged measuring 6.2 cm in yoana meter. No significant pelvic free fluid or pelvic lymphadenopathy. No retroperitoneal lymphadenopathy . Calcified plaque within the normal caliber abdominal aorta. Mild thickening of the seminal vesicles which may be chronic. Moderate well-formed stool seen throughout the colon. No bowel wall thickening or obstruction. Normal appendix. A few colonic diverticula. No evidence for acute diverticulitis. Th ere is mild retrocrural lymphadenopathy which is slightly progressed. The dominant right retrocrural lymph node on image 106 measures 15 x 9 mm. IMPRESSION: 1. Patchy densities within the lung bases most pronounced within the right lower lobe. This favors a pneumonia and could be secondary to aspiration. The right lower lobe bronchi are partially opacified. 2. There is fullness within the pancreatic head which may correspond to the patient's known history o f a pancreatic malignancy. However, this is not well assessed due to the motion artifact at this loca tion. 3. Mild enhancement within the central intra and extra hepatic bile ducts. This raises the possibilit y of an ascending cholangitis. 4. A metallic common bile duct stent appears in good position. There is evidence for pneumobilia. 5. Mild gallbladder wall thickening with pericholecystic inflammatory change/edema. This may represen t an acute cholecystitis. However, the gallbladder appears to be drained by the indwelling cholecysto duodenal stent which appears patent and in good position. 6. Dilated main pancreatic duct measuring up to 9 mm. 7. Bladder is decompressed by the Loza catheter. There is bladder wall thickening with a small amoun t of hyperdense material within the bladder lumen suggesting blood products/hematuria. Recommend yahaira elation with urinalysis to assess for age cystitis. 8. Mild retrocrural lymphadenopathy which has progressed. 9. Additional findings as described above. ACT 112: Negative or not required by law. Electronically signed by: Jose Alonso M.D. 10/22/2022 2:57 PM
[2022-10-22 15:50] LABS: A calco-baum cmplx NotReported Not Detected (NotDetected); Bact fragilis Not Reported Not Detected (NotDetected); C auris Not Reported Not Detected (NotDetected); CTX-M Resistant Gene Not Detected (NotDetected); Calbicans Not Reported Not Detected (NotDetected); Candida glabrata Not Reported Not Detected (NotDetected); Candida krusei Not Reported Not Detected (NotDetected); Cneoformans/gatti Not Reported Not Detected (NotDetected); Cparapsilosis Not Reported Not Detected (NotDetected); Ctropicalis Not Reported Not Detected (NotDetected); E cloacae compx Not Reported Not Detected (NotDetected); Efaecalis Not Reported Not Detected (NotDetected); Efaecium Not Reported Not Detected (NotDetected); Enterobacterales DETECTED (NotDetected); Enterobacterales Not Reported DETECTED (NotDetected); Escherichia coli Not Reported Not Detected (NotDetected); H influenzae Not Reported Not Detected (NotDetected); IMP Resistant Gene Not Detected (NotDetected); K aerogenes Not Reported DETECTED (NotDetected); KPC Resistant Gene Not Detected (NotDetected); Klebsiella aerogenes DETECTED (NotDetected); Klebsiella pneumoniae group DETECTED (NotDetected); Koxytoca Not Reported Not Detected (NotDetected); Lmonocyt Not Reported Not Detected (NotDetected); N meningitidis Not Reported Not Detected (NotDetected); NDM Resistant Gene Not Detected (NotDetected); OXA 48 Like Resistant Gene Not Detected (NotDetected); P aeruginosa Not Reported Not Detected (NotDetected); Proteus spp Not Reported Not Detected (NotDetected); Salmonella spp Not Reported Not Detected (NotDetected); Smarcescens Not Reported Not Detected (NotDetected); Staph lugdunensis Not Reported Not Detected (NotDetected); Staph spp. Not Reported Not Detected (NotDetected); Staphaureus Not Reported Not Detected (NotDetected); Staphepi Not Reported Not Detected (NotDetected); Stenmaltophilia Not Reported Not Detected (NotDetected); Strep agal(GrpB) Not Reported Not Detected (NotDetected); Strep pneum Not Reported Not Detected (NotDetected); Strep pyog (GrpA) Not Reported Not Detected (NotDetected); Strep spp Not Reported Not Detected (NotDetected); VIM Resistant Gene Not Detected (NotDetected); mcr-1 Colistin Resistant Gene Not Detected (NotDetected)
[2022-10-22] MEDS: VANCOMYCIN HCL 1,250 MG in SODIUM CHLORIDE 0.9% 250 ML IV SCH (16:14)
[2022-10-22] MEDS: PIPERACILLIN/TAZOBACTAM 3.375 GM in DEXTROSE 5% 100 ML IV SCH (16:15)
--- NOTE | 2022-10-22 16:19 | Surgery Consultation ---
Date of Consultation October 22, 2022 Assessment & Plan (1) Cholecystitis: This is an 87yM with a PMH of hypothyroid, HTN, dementia, diagnosis of pancreatic adenocarcinoma 1 year ago, who presents to the [facility] ED on 10/22/22 with fevers and a recent fall. Upon infectious workup a CT a/p was obtained that revealed findings concerning for ascending cholangitis, with mild gallbladder wall thickening and pericholecystic inflammatory change concerning for acute cholecystitis. Per CT report he does have a common bile duct stent in place along with an indwelling cholecystoduodenal stent which appears to be draining the gallbladder and is patent and in good position. WBC 5. LFTs show tb: 1.3, AST: 25 ALT:20 AlkP: 110. On admission patient initially febrile, but has defervesced and other vitals are stable. On examination patient's abdomen is soft, non tender, non distended. Given patient's history of pancreatic ca and medical status he is not an ideal surgical candidate at this time. Apparently gallbladder appears to be draining with current stent in place, but if not other options could be to transfer for percutaneous cholecystostomy tube pending GI's thoughts/recommendations. Otherwise discussions will be had with patient's POA regarding how aggressive they would like to be. For now opt for treatment with a course of antibiotics. No plans for surgical intervention from our standpoint. We will sign off, but call back if any questions/concerns. History of Present Illness Attending Physician: Timbo Rodriguez MD History of Present Illness This is an 87yM with a PMH of hypothyroid, HTN, dementia, diagnosis of pancreatic adenocarcinoma 1 year ago, who presents to the [facility] ED on 10/22/22 with fever and recent fall. Majority of history obtained from chart review, patient's POA Iqra, and conversations with covering services. Of note patient was apparently made comfort measures after his diagnosis of pancreatic cancer, but has now been off. He currently lives in a personal fdc around the [facility]. Due to fall and fever he was brought into the ER for evaluation. A CT a/p was obtained that revealed findings concerning for ascending cholangitis, with mild gallbladder wall thickening and pericholecystic inflammatory change concerning for acute cholecystitis. Per CT report he does have a common bile duct stent in place along with an indwelling ch olecystoduodenal stent which appears to be draining the gallbladder and is patent and in good position. Per POA the patient has been eating well. No nausea/vomiting. The patient also denies abdominal pain/nausea/vomiting. He does not remember his fall this morning. Allergies Allergy/AdvReac Type Severity Reaction Status Date / Time No Known Allergies Allergy Unverified 12/09/16 06:36 Home Medications Medication Instructions Recorded Confirmed Type cholecalciferol (vitamin D3) 50 50 mcg PO DAILY 10/22/22 10/22/22 History mcg (2,000 unit) tablet (Vitamin D3) donepezil 5 mg tablet 5 mg PO DAILY 10/22/22 10/22/22 History levothyroxine 50 mcg tablet 50 mcg PO DAILY 10/22/22 10/22/22 History lisinopril 5 mg tablet 5 mg PO DAILY 10/22/22 10/22/22 History mirtazapine 7.5 mg tablet 7.5 mg PO HS 10/22/22 10/22/22 History multivitamin-iron (hematinic) 1 tab PO DAILY 10/22/22 10/22/22 History pantoprazole 40 mg tablet,delayed 40 mg PO DAILY 10/22/22 10/22/22 History release potassium 99 mg tablet 99 mg PO DAILY 10/22/22 10/22/22 History tamsulosin 0.4 mg capsule 0.4 mg PO DAILY 10/22/22 10/22/22 History Patient History Medical History Dementia GERD (gastroesophageal reflux disease) HTN (hypertension) Hypothyroidism Pancreatic adenocarcinoma Surgical History No significant past surgical history Family History Other Family history unobtainable Social History Smoking Status: Former smoker Hx Alcohol Use: No Feels Safe at Home: Yes Review of Systems Gastrointestinal: no abdominal pain, no nausea and no vomiting Physical Exam Physical Exam: awake, lying in bed Respiratory: normal respiratory effort Gastrointestinal (Abdomen): Inspection/Auscultation: abdomen not distended Percussion/Palpation: abdomen soft; abdomen nontender Results & Data ([facility]) Vital Signs (Past 12 Hours) Vital Signs Temp Pulse Pulse Resp BP BP Pulse Ox 10/22/22 15:54 36.4 C L 60 18 118/67 96 10/22/22 15:20 64 10/22/22 12:28 63 10/22/22 10:52 36.8 C 72 18 111/60 94 10/22/22 09:52 10/22/22 09:37 83 21 116/52 L 94 10/22/22 08:20 84 19 116/55 L 93 10/22/22 07:40 83 22 104/49 L 93 10/22/22 06:57 39.3 C H 86 24 126/57 L 93 10/22/22 06:49 90 22 126/57 L 92 10/22/22 06:48 93 10/22/22 06:47 88 20 92 10/22/22 06:47 88 20 92 10/22/22 06:14 39.8 C H 10/22/22 05:57 37.2 C 103 H 22 172/81 H 92 O2 Del Method O2 Flow Rate 10/22/22 15:54 Room Air 10/22/22 15:20 10/22/22 12:28 10/22/22 10:52 Room Air 10/22/22 09:52 Room Air 10/22/22 09:37 Room Air 10/22/22 08:20 Room Air 10/22/22 07:40 Room Air 10/22/22 06:57 Room Air 10/22/22 06:49 Room Air 10/22/22 06:48 Room Air 0 10/22/22 06:47 Room Air 10/22/22 06:47 Room Air 10/22/22 06:14 10/22/22 05:57 Room Air Diagnostic Findings ABDOMEN AND PELVIS CT WITH IV CONTRAST CT DOSE: HISTORY: sepsis, hx pancreatic cancer TECHNIQUE: Multiaxial CT images of the abdomen and pelvis were performed following the use of intravenous contrast. A dose lowering technique was utilized adhering to the principles of ALARA. COMPARISON STUDY: Outside hospital PET/CT 07/01/2015. FINDINGS: Patchy densities within the lung bases most pronounced within the right lower lobe. This favors a pneumonia and could be secondary to aspiration. The right lower lobe bronchi are partially opacified. Suboptimal evaluation of the abdomen and pelvis due to motion artifact. No pneumoperitoneum. No pneumatosis. No suspicious lytic or blastic osseous lesions. The heart is mildly enlarged. Scattered hypodense lesions seen within the liver some which demonstrate a small amount peripheral calcification. Dominant lesion within the right hepatic dome measures 5.9 cm. These favor cysts. There is mild periportal edema. There is subtle enhancement within the central intra-/extra hepatic bile ducts best seen on image 124. The main portal vein appears patent. There is fullness within the pancreatic head which may correspond to the patient's known history of a pancreatic malignancy. However, this is not well assessed due to the motion artifact at this location. Metallic common bile duct stent appears to be in good position. Trace pneumobilia is noted. There is also gas within the gallbladder and a few punctate gallstones. This mild diffuse gallbladder wall thickening with pericholecystic inflammatory change/edema. There is a cholecystoduodenal stent which appears in good position and is likely patent. The main pancreatic duct is distended up to 9 mm. There is atrophy of the pancreatic tail. Bilateral adrenal gland nodules appear similar to the prior study and measure 2.4 cm on the right and 1.9 cm on the left. Small bilateral peripelvic renal cysts are noted. No hydronephrosis. The spleen is unremarkable. The superior mesenteric artery and vein appear patent. The bladder is decompressed by Loza catheter. Small amount of hyperdense fluid within the bladder lumen may represent blood products/hematuria. The bladder wall diffusely thickened. The prostate gland is enlarged measuring 6.2 cm in diameter. No significant pelvic free fluid or pelvic lymphadenopathy. No retroperitoneal lymphadenopathy. Calcified plaque within the normal caliber abdominal aorta. Mild thickening of the seminal vesicles which may be chronic. Moderate well- formed stool seen throughout the colon. No bowel wall thickening or obstruction. Normal appendix. A few colonic diverticula. No evidence for acute diverticulitis. There is mild retrocrural lymphadenopathy which is slightly progressed. The dominant right retrocrural lymph node on image 106 measures 15 x 9 mm. IMPRESSION: 1. Patchy densities within the lung bases most pronounced within the right lower lobe. This favors a pneumonia and could be secondary to aspiration. The right lower lobe bronchi are partially opacified. 2. There is fullness within the pancreatic head which may correspond to the patient's known history of a pancreatic malignancy. However, this is not well assessed due to the motion artifact at this location. 3. Mild enhancement within the central intra and extra hepatic bile ducts. This raises the possibility of an ascending cholangitis. 4. A metallic common bile duct stent appears in good position. There is evidence for pneumobilia. 5. Mild gallbladder wall thickening with pericholecystic inflammatory change/edema. This may represent an acute cholecystitis. However, the gallbladder appears to be drained by the indwelling cholecystoduodenal stent which appears patent and in good position. 6. Dilated main pancreatic duct measuring up to 9 mm. 7. Bladder is decompressed by the Loza catheter. There is bladder wall thickening with a small amount of hyperdense material within the bladder lumen suggesting blood products/hematuria. Recommend correlation with urinalysis to assess for age cystitis. 8. Mild retrocrural lymphadenopathy which has progressed. 9. Additional findings as described above. ACT 112: Negative or not required by law Electronically signed by: Jose Alonso M.D. 10/22/2022 2:57 PM PG Care Time/CCT Total # of Minutes Spent Total Time Spent with Patient: Total time spent is greater than 50% in coordination of care (as documented) at patient's floor/unit and/or counseling patient: Coding Level of Care Code 20851 INT INP/OBS CARE 40MIN Diagnoses Cholecystitis K81.9
[2022-10-22 16:51] LABS: Kpneumoniae grp Not Reported DETECTED (NotDetected)
[2022-10-22] MEDS: MIRTAZAPINE TAB 15 MG TAB PO SCH ×2 (21:34→21:47)
[2022-10-23] MEDS: PIPERACILLIN/TAZOBACTAM 3.375 GM in DEXTROSE 5% 100 ML IV SCH (01:10)
[2022-10-23] MEDS ORDERED: Nursing to Pharmacy Communication SCH (01:45)
[2022-10-23 05:33] LABS: BUN Creatinine Ratio 22.3 (10-20); Calcium 7.6 mg/dl (8.5-10.1); Creatinine Clr Calc Pharmacy 40.2 ml/min; Est GFR (African American) 57.7 ml/min; Est GFR (Non-African American) 49.8 ml/min; Potassium 3.2 mmol/L (3.5-5.1)
[2022-10-23 05:46] LABS: Troponin I High Sensitivity 1814.9 pg/ml (0-20)
[2022-10-23] MEDS: LEVOTHYROXINE SODIUM 50 MCG TABLET PO SCH (06:02)
[2022-10-23 06:20] LABS: Hematocrit (blood only) 30.8 % (40.1-51.0); Hemoglobin 10.3 g/dl (14.0-18.0); Mean Corpuscular Hemoglobin 28.6 pg (25.0-34.0); Mean Corpuscular Hgb Conc 33.4 g/dL (32.0-36.0); Mean Corpuscular Volume 85.6 fL (80.0-100.0); Mean Platelet Volume 11.1 fL (9.4-12.4); Platelet Count 147 K/uL (130-400); RDW Coefficient of Variation 14.3 % (11.5-14.5); RDW Standard Deviation 44.6 fL (36.4-46.3); White Blood Count 10.55 K/ul (4.8-10.8)
[2022-10-23] MEDS ORDERED: POTASSIUM CHLORIDE CRTAB 20 MEQ TABCR PO STA (08:13)
[2022-10-23] MEDS: SODIUM CHLORIDE 0.9% 1000ML 1,000 ML IV SCH (08:15)
[2022-10-23] MEDS: PANTOprazole 40 MG TAB PO SCH (08:17)
[2022-10-23] MEDS: TAMSULOSIN HCL 0.4 MG CAP PO SCH (08:17)
[2022-10-23] MEDS: DONEPEZIL HCL 5 MG TAB PO SCH (08:17)
[2022-10-23] MEDS ORDERED: lisinopril 5 MG TAB PO SCH (09:00)
--- NOTE | 2022-10-23 11:27 | Electrocardiogram Report ---
Test Reason : Blood Pressure : / mmHG Vent. Rate : 073 BPM Atrial Rate : 073 BPM P-R Int : 138 ms QRS Dur : 088 ms QT Int : 436 ms P-R-T Axes : 036 -07 057 degrees QTc Int : 480 ms Normal sinus rhythm with sinus arrhythmia Prolonged QT Abnormal ECG When compared with ECG of 22-OCT-2022 11:52, No significant change was found Confirmed by Killian Hardy ([id number]) on 10/23/2022 11:26:22 AM Referred By: [facility] Confirmed By:Carmelo Hardy
[2022-10-23] MEDS: metroNIDAZOLE 500 MG/100 ML BAG IV SCH ×2 (12:05→20:34)
[2022-10-23] MEDS: ENOXAPARIN INJ 40 MG/0.4 ML SYR SQ SCH (12:10)
[2022-10-23] MEDS: CEFEPIME 2,000 MG in SYRINGE 0 ML IV SCH ×2 (12:10→23:49)
--- NOTE | 2022-10-23 12:43 | Gastrointestinal Consultation ---
Date of Consultation October 23, 2022 Assessment & Plan (1) Sepsis: (2) Aspiration pneumonia: (3) Cholangitis: (4) Cholecystitis: Patient is an 87 years old male w PMHx of dementia, hypothyroidism, HTN, GERD, and pancreas adenocarcninoma status post Axios stent and CBD metal uncovered stent placements in 03/2022, who is admitted following a fall and altered mental status. On evaluation found to have pneumonia likely secondary to aspiration, signs of possible ascending cholangitis, cholecystitis. His Axios and CBD stents appear to be in place and patent. LFTs wo significant elevation. I called and spoke with patient's daughter, Hamilton, who confirmed that family would like patient to mostly be kept comfortable and avoid any further invasive procedures. Should he have any abdominal pain symptoms, nausea or vomiting, or signs of biliary obstructions we may need to reevaluate patient for possible repeat ERCP or other interventions. Daughter states that she will discuss this with pt's POA (Iqra) if ERCP may be indicated,but we can defer this procedure at the moment. Thus, we will continue conservative management with IV antibiotics. We can also try feeding him with CL diet and advance as tolerated. Supervising Physician Co-Signing Physician Notes Patient seen at bedside. Limited historian due to dementia. Came in with AMS after a fall. Has a hx of pancreatic adenocarcinoma s/p axios and CBD stent in 03/2022. On imaging found to have pneumonia and possible cholangitis however CBD stent is in good position. LFTs are stable with only mild elevation in ALP and total bili. Normal white count. Family would like to avoid any invasive procedures and just want patient to remain comfortable. Would hold off on any ERCP at this time unless patient develops any signs of cholangitis or decompensation and would rediscuss with family at that time. Continue conservative management with abx. Maggie Reyes, DO Gastroenterology and Hepatology History of Present Illness Reason for Consultation: Pancreatic cancer, cholangitis Requesting Physician: Dr. Olive Jean Attending Physician: Dr. Maggie Reyes History of Present Illness Pt is a 87-year-old male with PMHx of dementia, hypothyroidism, HTN, GERD, and pancreas adenocarcninoma status post Axios stent and CBD metal uncovered stent placements in 03/2022, who presented to the ED from [facility] for evaluation after fall and altered mental status. Due to patient's dementia, he was unable to provide much history. Chart has been reviewed. Was noted that when patient was evaluated in the ED yesterday he was febrile with mild tachycardia. No leukocytosis. Lactic acid is normal. His procalcitonin and troponins were however elevated. Head CT without any acute changes. CT abdomen and pelvis with contrast showed possible pneumonia secondary to aspiration. Patient's CBD metallic stent appears to be in good position with evidence of pneumobilia. There is gallbladder wall thickening with pericholecystic inflammatory changes and edema representing acute cholecystitis however gallbladder is drained by the indwelling Dai cystoscopy duodenal stent which appears patent and in good position. Pancreatic duct is dilated at 9 mm. Patient is currently DNR, DNI, family would like patient to mostly be kept comfortable and to avoid invasive procedures. Allergies Allergy/AdvReac Type Severity Reaction Status Date / Time No Known Allergies Allergy Unverified 12/09/16 06:36 Home Medications Medication Instructions Recorded Confirmed Type cholecalciferol (vitamin D3) 50 50 mcg PO DAILY 10/22/22 10/22/22 History mcg (2,000 unit) tablet (Vitamin D3) donepezil 5 mg tablet 5 mg PO DAILY 10/22/22 10/22/22 History levothyroxine 50 mcg tablet 50 mcg PO DAILY 10/22/22 10/22/22 History lisinopril 5 mg tablet 5 mg PO DAILY 10/22/22 10/22/22 History mirtazapine 7.5 mg tablet 7.5 mg PO HS 10/22/22 10/22/22 History multivitamin-iron (hematinic) 1 tab PO DAILY 10/22/22 10/22/22 History pantoprazole 40 mg tablet,delayed 40 mg PO DAILY 10/22/22 10/22/22 History release potassium 99 mg tablet 99 mg PO DAILY 10/22/22 10/22/22 History tamsulosin 0.4 mg capsule 0.4 mg PO DAILY 10/22/22 10/22/22 History Patient History Medical History Dementia GERD (gastroesophageal reflux disease) HTN (hypertension) Hypothyroidism Pancreatic adenocarcinoma Surgical History No significant past surgical history Family History Other Family history unobtainable Social History Smoking Status: Former smoker Hx Alcohol Use: No Communication Ability: Impaired Feels Safe at Home: Yes Assistive Devices: Cane and Wheelchair Review of Systems Review of Systems: All systems reviewed & are unremarkable except as noted in HPI & below Physical Exam Constitutional: WD/WN, vitals as above well groomed, cooperative and comfortable Eyes: PERRL, conjunctivae normal, anicteric sclerae ENMT: external ear and nose normal, oropharynx normal Respiratory: normal respiratory effort, lungs clear to auscultation Cardiovascular: RRR, no murmur, no edema Gastrointestinal (Abdomen): normal bowel sounds, soft, nontender, no hepatosplenomegaly Skin: no rashes, warm and dry no jaundice Psychiatric: Alert, he is demented Lymphatic: no lymphedema Results & Data ([facility]) Vital Signs (Past 12 Hours) Vital Signs Temp Pulse Pulse Resp BP Pulse Ox O2 Del Method 10/23/22 11:20 37.3 C 61 16 133/60 91 Room Air 10/23/22 07:31 37.2 C 74 16 154/79 H 95 Room Air 10/23/22 07:24 63 10/23/22 03:10 36.7 C 72 18 144/71 H 91 Room Air
--- NOTE | 2022-10-23 13:59 | Hospitalist Progress Note ---
Date of Service October 23, 2022 Assessment & Plan (1) Sepsis: Plan 87-year-old male with PMH of severe dementia, pancreatic adenocarcinoma status post cholecystoduodenostomy with stent, hypothyroidism, HTN, GERD, aspiration was admitted 10/22 after a fall and altered mental status, [facility] Of note, admitting attending spoke with patient's POA Iqra Torres (friend) who noted patient is DNR/DNI and no invasive procedure [does not want to undergo ERCP even if it is necessary]. Okay with antibiotics. Patient's daughter lives in [place]. The patient is being managed for the following: Sepsis POA Likely metabolic encephalopathy Bacteremia Patient presented from [facility] for evaluation after fall and AMS. At presentation, patient was febrile at 39.3, tachycardic, elevated procalcitonin, normal lactic acid/stable BP. Admitting CT head with no acute findings. Imagings/evaluation confirmed infection like cholecystitis/cholangitis/aspiration pneumonia. Admitting blood culture with gram-negative bacteremia, patient on antibiotics see below, ID consult. Repeat blood culture 10/23 pending. Temperature improving. Monitor and replete electrolytes. Treatment--- manage underlying condition Aspiration pneumonia: History of aspiration, admitting CTAP with patchy densities at the lung bases most pronounced within the right lower lobe, suggestive of pneumonia. Admitting RSV/COVID/flu negative. Speech evaluated, alternate solids and liquids once patient able to be advanced on his thickened clear liquid diet for his cholecystitis status. Patient on antibiotics, see below Cholangitis Cholecystitis Admitting CTAP: Pancreatic fullness indicating patient's own history of pancreatic malignancy. Concern for ascending cholangitis. Metallic CBD stent in good position, evidence for pneumobilia. Concern for acute cholecystitis. Dilated main pancreatic duct measuring up to 9 mm. Mild retrocrural lymphadenopathy has progressed. Admitting LFT, fairly WNL. History of pancreatic adenocarcinoma status post CBD stent 03/2022. Continue with vancomycin and Zosyn at admission ----> 10/23 cefepime, 10/22 vancomycin, 10/23 metronidazole. Advance diet as tolerated. General surgery and GI evaluated, appreciate recs. Demand ischemia, NSTEMI type II: Admitting troponin elevated, likely secondary to sepsis, patient with no chest pain, EKG reviewed, no acute ST or T changes. 10/22 echo with mild concentric LVH, LV systolic function normal, EF 60 to 65%, left ventricular wall motion normal, right ventricular systolic function normal. Status post fall: Patient does have a history of fall in the past, denies any acute pain, CT head at admission with no acute finding, PT/OT. Other chronic medical conditions: Severe dementia with history of aspiration [baseline AAO x1], history of, pancreatic cancer status post cholecystoduodenostomy with a stent delirium --->> resume home meds as and when able. Family and POA did not want further testing or intervention. Admission and Anticipated Discharge Date Admission Date: October 22, 2022 Subjective Patient seen and examined at bedside as a follow-up of sepsis POA, cholangitis, cholecystitis, aspiration pneumonia and elevated troponin/type II NSTEMI. Of note patient was recently diagnosed with pancreatic adenocarcinoma and according to POLST form, patient is comfort measures only. Patient was lying in bed, on room air, NAD, denies any new acute event overnight, is on thickened liquid diet, denies any pain, reports having small bowel movement, denies any headache or dizziness or chest pain, denies other ROS. Per RN, no new acute event overnight and is eating some of his thickened liquid diet. Physical Exam Physical Exam: GENERAL: Alert and awake. NAD, on RA. Appears ill/frail/weak. HEENT: No pallor, no icterus. Pupils equal, round and reactive to light. Oral mucosa moist. NECK: No JVD, no neck masses. HEART: S1 and S2 heard. Regular rate and rhythm. Systolic murmur at aortic greater than pulmonic area, no gallop. RESPIRATORY SYSTEM: Normal AP diameter. No accessory muscle use. No wheezing, right greater than left lung crackles. ABDOMEN: Soft, bowel sounds present, nontender, no distention. CENTRAL NERVOUS SYSTEM: No facial droop. Speech is clear. Obeys simple commands. Moves extremities. EXTREMITIES: No edema, no erythema seen. Urinary catheter with yellow urine collection noted. Results & Data Results & Data ([facility]) Vital Signs (Past 12 Hours) Vital Signs Temp Pulse Pulse Resp BP Pulse Ox O2 Del Method 10/23/22 11:20 37.3 C 61 16 133/60 91 Room Air 10/23/22 07:31 37.2 C 74 16 154/79 H 95 Room Air 10/23/22 07:24 63 10/23/22 03:10 36.7 C 72 18 144/71 H 91 Room Air
[2022-10-23] MEDS: VANCOMYCIN HCL 1,250 MG in SODIUM CHLORIDE 0.9% 250 ML IV SCH (17:46)
[2022-10-23] MEDS ORDERED: lisinopril 5 MG TAB PO ONE (20:35)
[2022-10-23] MEDS: MIRTAZAPINE TAB 15 MG TAB PO SCH (20:59)
[2022-10-23] MEDS ORDERED: LABETALOL HCL IV 5 MG/ML 20ML IV STA ×2 (22:40→23:12)
[2022-10-23] MEDS ORDERED: POTASSIUM CHLORIDE PWD 20 MEQ PACK PO STA (22:41)
[2022-10-23] MEDS ORDERED: cloNIDine HCL 0.1 MG TAB PO ONE (22:59)
[2022-10-23] MEDS ORDERED: LABETALOL HCL IV 5 MG/ML 20ML IV ONE (23:12)
[2022-10-23] MEDS: MAGNESIUM SULFATE / D5W 1 GM/100 ML BAG IV SCH (23:55)
[2022-10-24] MEDS ORDERED: POTASSIUM CHLORIDE PWD 20 MEQ PACK PO ONE
[2022-10-24 00:09] LABS: Troponin I High Sensitivity 993.9 pg/ml (0-20)
[2022-10-24] MEDS: SODIUM CHLORIDE 0.9% 1000ML 1,000 ML IV SCH ×2 (00:13→18:27)
[2022-10-24] MEDS ORDERED: lisinopril 10 MG TAB PO SCH (00:15)
[2022-10-24 00:30] LABS: Partial Thromboplastin Ratio 1.2; Partial Thromboplastin Time 32.5 Seconds (21.0-31.0)
[2022-10-24] MEDS: MAGNESIUM SULFATE / D5W 1 GM/100 ML BAG IV SCH (01:44)
[2022-10-24] MEDS: metroNIDAZOLE 500 MG/100 ML BAG IV SCH ×3 (03:10→18:15)
[2022-10-24] MEDS ORDERED: lisinopril 10 MG TAB PO STA ×2 (03:12→20:18)
--- NOTE | 2022-10-24 04:51 | Communication Note ---
Date of Service: October 24, 2022 Patient moved to PCU from [facility] for uncontrolled HTN and tachy. IV beta blockers cannot be administered at [facility] as per nursing staff.
[2022-10-24] MEDS: LEVOTHYROXINE SODIUM 50 MCG TABLET PO SCH (05:55)
[2022-10-24] MEDS ORDERED: hydrALAZINE HCL 20 MG/ML VIAL IV STA (06:12)
[2022-10-24 06:40] LABS: Hematocrit (blood only) 32.2 % (42.0-52.0); Hemoglobin 10.7 g/dl (14.0-18.0); Mean Corpuscular Hemoglobin 28.8 pg (25.0-34.0); Mean Corpuscular Hgb Conc 33.2 g/dL (32.0-36.0); Mean Corpuscular Volume 86.6 fL (80.0-100.0); Mean Platelet Volume 12.1 fL (9.4-12.4); Platelet Count 150 K/uL (130-400); RDW Coefficient of Variation 14.3 % (11.5-14.5); RDW Standard Deviation 45.1 fL (36.4-46.3); Red Blood Count 3.72 M/uL (4.70-6.10); White Blood Count 8.98 K/ul (4.8-10.8)
[2022-10-24] MEDS: PANTOprazole 40 MG TAB PO SCH (08:26)
[2022-10-24] MEDS: DONEPEZIL HCL 5 MG TAB PO SCH (08:26)
[2022-10-24] MEDS: TAMSULOSIN HCL 0.4 MG CAP PO SCH (08:27)
[2022-10-24] MEDS: LABETALOL HCL IV 5 MG/ML 20ML IV PRN (08:29)
--- NOTE | 2022-10-24 09:07 | Electrocardiogram Report ---
Test Reason : Blood Pressure : / mmHG Vent. Rate : 075 BPM Atrial Rate : 075 BPM P-R Int : 152 ms QRS Dur : 086 ms QT Int : 426 ms P-R-T Axes : 050 003 055 degrees QTc Int : 475 ms Sinus rhythm with marked sinus arrhythmia Otherwise normal ECG When compared with ECG of 23-OCT-2022 05:18, No significant change was found Confirmed by Killian Hardy ([id number]) on 10/24/2022 9:07:14 AM Referred By: [facility] Confirmed By:Carmelo Hardy
--- NOTE | 2022-10-24 09:12 | Electrocardiogram Report ---
Test Reason : Blood Pressure : / mmHG Vent. Rate : 076 BPM Atrial Rate : 076 BPM P-R Int : 148 ms QRS Dur : 090 ms QT Int : 400 ms P-R-T Axes : 022 -16 055 degrees QTc Int : 450 ms Sinus rhythm with marked sinus arrhythmia Otherwise normal ECG When compared with ECG of 23-OCT-2022 23:03, (unconfirmed) No significant change was found Confirmed by Killian Hardy ([id number]) on 10/24/2022 9:11:57 AM Referred By: [facility] Confirmed By:Carmelo Hardy
[2022-10-24] MEDS: CEFEPIME 2,000 MG in SYRINGE 0 ML IV SCH ×2 (10:09→21:40)
[2022-10-24] MEDS: ENOXAPARIN INJ 40 MG/0.4 ML SYR SQ SCH (10:26)
[2022-10-24] MEDS: hydrALAZINE HCL 20 MG/ML VIAL IV PRN ×2 (11:35→20:18)
[2022-10-24 13:26] LABS: BUN Creatinine Ratio 19.6 (10-20); Calcium 8.1 mg/dl (8.5-10.1); Creatinine Clr Calc Pharmacy 51.2 ml/min; Est GFR (African American) 77.3 ml/min; Est GFR (Non-African American) 66.7 ml/min; Magnesium 2.3 mg/dl (1.7-2.4); Potassium 3.9 mmol/L (3.5-5.1)
[2022-10-24] MEDS ORDERED: SODIUM PHOSPHATE 3 MMOL/1 ML INFUSION IV STA (17:32)
--- NOTE | 2022-10-24 17:38 | Hospitalist Progress Note ---
Date of Service October 24, 2022 Assessment & Plan (1) Sepsis: Plan 87-year-old male with PMH of severe dementia, pancreatic adenocarcinoma status post cholecystoduodenostomy with stent, hypothyroidism, HTN, GERD, aspiration was admitted 10/22 after a fall and altered mental status, patient is from [facility] Of note, admitting attending spoke with patient's POA Iqra Torres (friend) who noted patient is DNR/DNI and no invasive procedure [does not want to undergo ERCP even if it is necessary]. Okay with antibiotics. Patient's daughter lives in [place]. The patient is being managed for the following: Sepsis POA Likely metabolic encephalopathy Bacteremia Patient presented from [facility] for evaluation after fall and AMS. At presentation, patient was febrile at 39.3, tachycardic, elevated procalcitonin, normal lactic acid/stable BP. Admitting CT head with no acute findings. Imagings/evaluation confirmed infection like cholecystitis/cholangitis/aspiration pneumonia. Admitting blood culture with gram-negative bacteremia, patient on antibiotics see below, ID consult. Repeat blood culture 10/23 pending. Temperature improving. Monitor and replete electrolytes. Treatment--- manage underlying condition Pt is AO to self and place. ID evaled, continue current antibiotic pending finalization of blood culture. Will need rediscussion with ID once blood culture finalized. Aspiration pneumonia: History of aspiration, admitting CTAP with patchy densities at the lung bases most pronounced within the right lower lobe, suggestive of pneumonia. Admitting RSV/COVID/flu negative. Speech evaluated, alternate solids and liquids once patient able to be advanced on his thickened clear liquid diet for his cholecystitis status. Patient on antibiotics, see below Cholangitis Cholecystitis Admitting CTAP: Pancreatic fullness indicating patient's own history of pancreatic malignancy. Concern for ascending cholangitis. Metallic CBD stent in good position, evidence for pneumobilia. Concern for acute cholecystitis. Dilated main pancreatic duct measuring up to 9 mm. Mild retrocrural lymphadenopathy has progressed. Admitting LFT, fairly WNL. History of pancreatic adenocarcinoma status post CBD stent 03/2022. Continue with vancomycin and Zosyn at admission ----> 10/23 cefepime, 10/22 vancomycin, 10/23 metronidazole. Advance diet as tolerated. General surgery and GI evaluated, appreciate recs. Demand ischemia, NSTEMI type II: Admitting troponin elevated, likely secondary to sepsis, patient with no chest pain, EKG reviewed, no acute ST or T changes. 10/22 echo with mild concentric LVH, LV systolic function normal, EF 60 to 65%, left ventricular wall motion normal, right ventricular systolic function normal. Status post fall: Patient does have a history of fall in the past, denies any acute pain, CT head at admission with no acute finding, PT/OT. Other chronic medical conditions: Severe dementia with history of aspiration [baseline AAO x1], history of, pancreatic cancer status post cholecystoduodenostomy with a stent delirium --->> resume home meds as and when able. Family and POA did not want further testing or intervention. Called patient's daughter Hamilton over the phone, updated about patient's current status and poor prognosis associated with his pancreatic cancer and history of aspiration leading to recurrent infections/recurrent hospitalization. Discussed goals of care, she expressed interest in hospice evaluation and possible care under hospice upon discharge. manager beauty consulted for hospice eval. Total time spent during phone call was around 12-minute. Admission and Anticipated Discharge Date Admission Date: October 22, 2022 Subjective Patient seen and examined at bedside as a follow-up of sepsis POA, cholangitis, cholecystitis, aspiration pneumonia and elevated troponin/type II NSTEMI. Of note patient was recently diagnosed with pancreatic adenocarcinoma and according to POLST form, patient is comfort measures only. Patient was lying in bed, on room air, NAD, had hypertensive episode overnight, is on thickened liquid diet, denies any pain, reports having small bowel movement, denies any headache or dizziness or chest pain, denies other ROS. Physical Exam Physical Exam: GENERAL: Alert and awake. NAD, on RA. Appears ill/frail/weak. HEENT: No pallor, no icterus. Pupils equal, round and reactive to light. Oral mucosa moist. NECK: No JVD, no neck masses. HEART: S1 and S2 heard. Regular rate and rhythm. Systolic murmur at aortic greater than pulmonic area, no gallop. RESPIRATORY SYSTEM: Normal AP diameter. No accessory muscle use. No wheezing, right greater than left lung crackles. ABDOMEN: Soft, bowel sounds present, nontender, no distention. CENTRAL NERVOUS SYSTEM: No facial droop. Speech is clear. Obeys simple commands. Moves extremities. EXTREMITIES: No edema, no erythema seen. Urinary catheter with yellow urine collection noted. Results & Data Results & Data ([facility]) Vital Signs (Past 12 Hours) Vital Signs Temp Pulse Pulse Resp BP BP Pulse Ox 10/24/22 16:11 36.8 C 80 17 168/79 H 93 10/24/22 13:09 148/61 H 10/24/22 11:33 37.1 C 71 16 180/91 H 98 10/24/22 10:33 85 10/24/22 09:05 10/24/22 07:15 37.1 C 77 17 182/93 H 93 10/24/22 06:39 73 173/88 H 10/24/22 06:01 72 210/98 H O2 Del Method 10/24/22 16:11 Room Air 10/24/22 13:09 10/24/22 11:33 Room Air 10/24/22 10:33 10/24/22 09:05 Room Air 10/24/22 07:15 Room Air 10/24/22 06:39 10/24/22 06:01
[2022-10-24] MEDS ORDERED: SODIUM PHOSPHATE 9 MMOL in DEXTROSE 5% 250 ML IV ONE (18:00)
[2022-10-24] MEDS: VANCOMYCIN HCL 1,250 MG in SODIUM CHLORIDE 0.9% 250 ML IV SCH (18:15)
[2022-10-24] MEDS: MIRTAZAPINE TAB 15 MG TAB PO SCH (20:17)
[2022-10-25] MEDS: LABETALOL HCL IV 5 MG/ML 20ML IV PRN ×2 (00:07→11:25)
--- NOTE | 2022-10-25 00:08 | Communication Note ---
Date of Service: October 25, 2022 Made aware by RN of uncontrolled blood pressure. SBP 170-1 80s from last night. Patient asymptomatic as per RN. AP Hypertensive urgency Add amlodipine to current lisinopril 30 mg daily dosage. Will relay to AM provider.
[2022-10-25] MEDS ORDERED: amLODIPine BESYLATE 5 MG TAB PO SCH ×2 (00:10→21:00)
[2022-10-25] MEDS: metroNIDAZOLE 500 MG/100 ML BAG IV SCH ×2 (02:36→12:28)
[2022-10-25 06:03] LABS: Hematocrit (blood only) 33.5 % (42.0-52.0); Hemoglobin 11.3 g/dl (14.0-18.0); Mean Corpuscular Hemoglobin 28.9 pg (25.0-34.0); Mean Corpuscular Hgb Conc 33.7 g/dL (32.0-36.0); Mean Corpuscular Volume 85.7 fL (80.0-100.0); Mean Platelet Volume 11.6 fL (9.4-12.4); Platelet Count 148 K/uL (130-400); RDW Coefficient of Variation 14.3 % (11.5-14.5); RDW Standard Deviation 44.1 fL (36.4-46.3); Red Blood Count 3.91 M/uL (4.70-6.10); White Blood Count 7.74 K/ul (4.8-10.8)
[2022-10-25] MEDS: LEVOTHYROXINE SODIUM 50 MCG TABLET PO SCH (06:03)
[2022-10-25 06:25] LABS: Calcium 8.1 mg/dl (8.5-10.1); Magnesium 1.9 mg/dl (1.7-2.4); Potassium 3.5 mmol/L (3.5-5.1)
[2022-10-25 06:31] LABS: BUN Creatinine Ratio 16.3 (10-20); Creatinine Clr Calc Pharmacy 60.8 ml/min; Est GFR (African American) 91.6 ml/min; Est GFR (Non-African American) 79.1 ml/min; Phosphorus 2.5 mg/dl (2.5-4.9)
[2022-10-25] MEDS: PANTOprazole 40 MG TAB PO SCH (08:32)
[2022-10-25] MEDS: TAMSULOSIN HCL 0.4 MG CAP PO SCH (08:33)
[2022-10-25] MEDS: DONEPEZIL HCL 5 MG TAB PO SCH (08:33)
[2022-10-25] MEDS ORDERED: lisinopril 20 MG TAB PO SCH (09:00)
[2022-10-25] MEDS ORDERED: lisinopril 10 MG TAB PO SCH (09:00)
[2022-10-25] MEDS ORDERED: VANCOMYCIN HCL 1,250 MG in SODIUM CHLORIDE 0.9% 250 ML IV SCH (10:00)
[2022-10-25] MEDS: CEFEPIME 2,000 MG in SYRINGE 0 ML IV SCH (11:18)
[2022-10-25] MEDS: ENOXAPARIN INJ 40 MG/0.4 ML SYR SQ SCH (11:22)
--- NOTE | 2022-10-25 15:30 | Pharmacy Report ---
Pharmacy PK ABX Note - Date of Service October 25, 2022 - Assessment and Plan Assessment 87 year old M receiving cefepime, vancomycin and metronidazole for polymicrobial bacteremia, cholangitis, and aspiration pneumonia. Blood cultures growing Klebsiella aerogenes, Klebsiella penumoniae and Clostridium perfringens. ID has been re-consulted based on updated micro data. Recommendations to follow. Day # 4 of antimicrobial therapy. Plan Vancomycin * Change to 1250 mg IV every 12 hours * Regimen is predicted to achieve target AUC/RIOS of 400-600 mg/L.hr * predicted AUC at steady state: 555 * predicted trough at steady state: 15.5 mcg/mL * Will repeat level as needed if therapy with vanco is continued Pharmacy will continue to follow and will adjust dose/frequency as necessary. Thank you.
--- NOTE | 2022-10-25 15:44 | Hospitalist Progress Note ---
Date of Service October 25, 2022 Assessment & Plan (1) Sepsis: Plan 87-year-old male with PMH of severe dementia, pancreatic adenocarcinoma status post cholecystoduodenostomy with stent, hypothyroidism, HTN, GERD, aspiration was admitted 10/22 after a fall and altered mental status, [facility]. Of note, admitting attending spoke with patient's POA Iqra Torres (friend) who noted patient is DNR/DNI and no invasive procedure [does not want to undergo ERCP even if it is necessary]. Okay with antibiotics. Patient's daughter lives in [place]. The patient is being managed for the following: Sepsis POA Likely metabolic encephalopathy Bacteremia Patient presented from [facility] for evaluation after fall and AMS. At presentation, patient was febrile at 39.3, tachycardic, elevated procalcitonin, normal lactic acid/stable BP. Admitting CT head with no acute findings. Imagings/evaluation confirmed infection like cholecystitis/cholangitis/aspiration pneumonia. Admitting blood culture result reviewed 10/25; Repeat blood culture 10/23 - NG 48 hours. Afebrile since 10/23. Monitor and replete electrolytes. Treatment--- manage underlying condition Pt is AO to self and place. ID evaled, continue current antibiotic pending finalization of blood culture - re d/w id 10/25, will dc other atb, put him on ertapenem Aspiration pneumonia: History of aspiration, admitting CTAP with patchy densities at the lung bases most pronounced within the right lower lobe, suggestive of pneumonia. Admitting RSV/COVID/flu negative. Speech evaluated, alternate solids and liquids once patient able to be advanced on his thickened clear liquid diet for his cholecystitis status. Patient on antibiotics, see below Cholangitis Cholecystitis Admitting CTAP: Pancreatic fullness indicating patient's own history of pancreatic malignancy. Concern for ascending cholangitis. Metallic CBD stent in good position, evidence for pneumobilia. Concern for acute cholecystitis. Dilated main pancreatic duct measuring up to 9 mm. Mild retrocrural lymphadenopathy has progressed. Admitting LFT, fairly WNL. History of pancreatic adenocarcinoma status post CBD stent 03/2022. Continue with vancomycin and Zosyn at admission ----> 10/23 cefepime, 10/22 vancomycin, 10/23 metronidazole --> ertapenem only from 10/25. Advance diet as tolerated. General surgery and GI evaluated, appreciate recs. Demand ischemia, NSTEMI type II: Admitting troponin elevated, likely secondary to sepsis, patient with no chest pain, EKG reviewed, no acute ST or T changes. 10/22 echo with mild concentric LVH, LV systolic function normal, EF 60 to 65%, left ventricular wall motion normal, right ventricular systolic function normal. Hypertensive urgency: likely 2/2 acute illness, amlod added and lisinopril uptitrated, prn bp meds on board, RN to use them when appropriate. Hydralazine tid added. Status post fall: Patient does have a history of fall in the past, denies any acute pain, CT head at admission with no acute finding, PT/OT. Other chronic medical conditions: Severe dementia with history of aspiration [baseline AAO x1], history of, pancreatic cancer status post cholecystoduodenostomy with a stent delirium --->> resume home meds as and when able. Family and POA did not want further testing or intervention. Called patient's daughter Hamilton over the phone 10/24, updated about patient's current status and poor prognosis associated with his pancreatic cancer and history of aspiration leading to recurrent infections/recurrent hospitalization. Discussed goals of care, she expressed interest in hospice evaluation and possible care under hospice upon discharge. title manager consulted for hospice eval. Total time spent during phone call was around 12-minute. Admission and Anticipated Discharge Date Admission Date: October 22, 2022 Subjective Patient seen and examined at bedside as a follow-up of sepsis POA, cholangitis, cholecystitis, aspiration pneumonia and elevated troponin/type II NSTEMI. Of note patient was recently diagnosed with pancreatic adenocarcinoma and according to POLST form, patient is comfort measures only. Patient was lying in bed, on room air, NAD, still w/ hypertension, is on thickened liquid diet, denies any pain, denies any headache or dizziness or chest pain, denies other ROS. Physical Exam Physical Exam: GENERAL: Alert and awake. NAD, on RA. Appears ill/frail/weak. HEENT: No pallor, no icterus. Pupils equal, round and reactive to light. Oral mucosa moist. NECK: No JVD, no neck masses. HEART: S1 and S2 heard. Regular rate and rhythm. Systolic murmur at aortic greater than pulmonic area, no gallop. RESPIRATORY SYSTEM: Normal AP diameter. No accessory muscle use. No wheezing, right greater than left lung crackles. ABDOMEN: Soft, bowel sounds present, nontender, no distention. CENTRAL NERVOUS SYSTEM: No facial droop. Speech is clear. Obeys simple commands. Moves extremities. EXTREMITIES: No edema, no erythema seen. Urinary catheter with yellow urine collection noted. Results & Data Results & Data ([facility]) Vital Signs (Past 12 Hours) Vital Signs Temp Pulse Pulse Resp BP BP Pulse Ox 10/25/22 12:14 37.0 C 69 18 182/82 H 93 10/25/22 10:50 69 10/25/22 10:50 10/25/22 08:35 36.6 C 72 17 175/84 H 94 O2 Del Method 10/25/22 12:14 Room Air 10/25/22 10:50 10/25/22 10:50 Room Air 10/25/22 08:35 Room Air
[2022-10-25] MEDS: ERTAPENEM SODIUM 1,000 MG in SYRINGE 0 ML IV SCH (17:18)
[2022-10-25] MEDS ORDERED: CEFEPIME 2,000 MG in SYRINGE 0 ML IV SCH (19:00)
[2022-10-25] MEDS ORDERED: hydrALAZINE HCL 25 MG TAB PO SCH ×2 (20:10→21:00)
[2022-10-25] MEDS: amLODIPine BESYLATE 5 MG TAB PO SCH (20:14)
[2022-10-25] MEDS: MIRTAZAPINE TAB 15 MG TAB PO SCH (20:16)
[2022-10-26] MEDS: hydrALAZINE HCL 25 MG TAB PO SCH ×3 (05:31→20:59)
[2022-10-26] MEDS: lisinopril 10 MG TAB PO SCH (05:32)
[2022-10-26] MEDS: LEVOTHYROXINE SODIUM 50 MCG TABLET PO SCH (05:36)
[2022-10-26] MEDS: PANTOprazole 40 MG TAB PO SCH (09:36)
[2022-10-26] MEDS: TAMSULOSIN HCL 0.4 MG CAP PO SCH (09:36)
[2022-10-26] MEDS: DONEPEZIL HCL 5 MG TAB PO SCH (09:36)
[2022-10-26] MEDS: ENOXAPARIN INJ 40 MG/0.4 ML SYR SQ SCH (12:54)
--- NOTE | 2022-10-26 14:32 | Hospitalist Progress Note ---
Date of Service October 26, 2022 Assessment & Plan (1) Sepsis: Plan 87-year-old male with PMH of severe dementia, pancreatic adenocarcinoma status post cholecystoduodenostomy with stent, hypothyroidism, HTN, GERD, aspiration was admitted 10/22 after a fall and altered mental status, [facility] Of note, admitting attending spoke with patient's POA Iqra Torres (friend) who noted patient is DNR/DNI and no invasive procedure [does not want to undergo ERCP even if it is necessary]. Okay with antibiotics. Patient's daughter lives in [place]. The patient is being managed for the following: Sepsis POA Likely metabolic encephalopathy Bacteremia Patient presented from [facility] for evaluation after fall and AMS. At presentation, patient was febrile at 39.3, tachycardic, elevated procalcitonin, normal lactic acid/stable BP. Admitting CT head with no acute findings. Imagings/evaluation confirmed infection like cholecystitis/cholangitis/aspiration pneumonia. Admitting blood culture result reviewed 10/25; Repeat blood culture 10/23 - NG 48 hours. Afebrile since 10/23. Monitor and replete electrolytes. Treatment--- manage underlying condition Pt is AO to self and place. ID evaled, continue current antibiotic pending finalization of blood culture --->> re d/w id 10/25, DC'd other atb, put him on ertapenem Aspiration pneumonia: History of aspiration, admitting CTAP with patchy densities at the lung bases most pronounced within the right lower lobe, suggestive of pneumonia. Admitting RSV/COVID/flu negative. Speech evaluated, alternate solids and liquids once patient able to be advanced on his thickened clear liquid diet for his cholecystitis status. Patient on antibiotics, see below. Cholangitis Cholecystitis Admitting CTAP: Pancreatic fullness indicating patient's own history of pancreatic malignancy. Concern for ascending cholangitis. Metallic CBD stent in good position, evidence for pneumobilia. Concern for acute cholecystitis. Dilated main pancreatic duct measuring up to 9 mm. Mild retrocrural lymphadenopathy has progressed. Admitting LFT, fairly WNL. History of pancreatic adenocarcinoma status post CBD stent 03/2022. Continue with vancomycin and Zosyn at admission ----> 10/23 cefepime, 10/22 vancomycin, 10/23 metronidazole --> ertapenem only from 10/25. Advance diet as tolerated. General surgery and GI evaluated, appreciate recs. Demand ischemia, NSTEMI type II: Admitting troponin elevated, likely secondary to sepsis, patient with no chest pain, EKG reviewed, no acute ST or T changes. 10/22 echo with mild concentric LVH, LV systolic function normal, EF 60 to 65%, left ventricular wall motion normal, right ventricular systolic function normal. Hypertensive urgency: likely 2/2 acute illness, amlod added and lisinopril uptitrated, prn bp meds on board, RN to use them when appropriate. Hydralazine tid added. BP better controlle.d Status post fall: Patient does have a history of fall in the past, denies any acute pain, CT head at admission with no acute finding, PT/OT. Other chronic medical conditions: Severe dementia with history of aspiration [baseline AAO x1], history of, pancreatic cancer status post cholecystoduodenostomy with a stent delirium --->> resume home meds as and when able. Family and POA did not want further testing or intervention. Pt w/ poor appetite, and has poor prognosis due to overall comorbidities including pancreatic cancer and chronic aspiration. Called patient's daughter Hamilton over the phone 10/24, updated about patient's current status and poor prognosis associated with his pancreatic cancer and history of aspiration leading to recurrent infections/recurrent hospitalization. Discussed goals of care, she expressed interest in hospice evaluation and possible care under hospice upon discharge. litigation services manager consulted for hospice eval. Total time spent during phone call was around 12-minute. Called patient's friend and POA Iqra 10/26, explained about the current status of the patient, she mentioned that she has discussed with patient's daughter Hamitlon and are looking for hospice care for the patient. She was made aware what hospice care entails and she seemed inclined towards hospice for Abdiel but would like to again confirm with patient's daughter Hamilton and will get back to us at the hospital. She is aware that hospice care may mean discontinuing of his iv antibiotic Rx. Disposition: to assist with DC planning, likely hospice on DC. Admission and Anticipated Discharge Date Admission Date: October 22, 2022 Subjective Patient seen and examined at bedside as a follow-up of sepsis POA, cholangitis, cholecystitis, aspiration pneumonia and elevated troponin/type II NSTEMI. Of note patient was recently diagnosed with pancreatic adenocarcinoma and according to POLST form, patient is comfort measures only. Patient was lying in bed, on room air, NAD, blood pressure getting better controlled, is on thickened liquid diet, denies any pain, denies any headache or dizziness or chest pain, denies other ROS. For RN, patient is on/off confused and is with very poor appetite. Physical Exam Physical Exam: GENERAL: Alert and awake. NAD, on RA. Appears ill/frail/weak. HEENT: No pallor, no icterus. Pupils equal, round and reactive to light. Oral mucosa moist. NECK: No JVD, no neck masses. HEART: S1 and S2 heard. Regular rate and rhythm. Systolic murmur at aortic greater than pulmonic area, no gallop. RESPIRATORY SYSTEM: Normal AP diameter. No accessory muscle use. No wheezing, right greater than left lung crackles. ABDOMEN: Soft, bowel sounds present, nontender, no distention. CENTRAL NERVOUS SYSTEM: No facial droop. Speech is clear. Obeys simple commands. Moves extremities. EXTREMITIES: No edema, no erythema seen. Urinary catheter with yellow urine collection noted. Results & Data Results & Data ([facility]) Vital Signs (Past 12 Hours) Vital Signs Temp Pulse Pulse Resp BP BP Pulse Ox 10/26/22 12:44 36.7 C 69 17 157/76 H 91 10/26/22 11:18 70 10/26/22 11:18 10/26/22 08:34 37.1 C 69 17 161/69 H 92 10/26/22 05:01 36.7 C 68 16 171/76 H 91 O2 Del Method 10/26/22 12:44 Room Air 10/26/22 11:18 10/26/22 11:18 Room Air 10/26/22 08:34 Room Air 10/26/22 05:01 Room Air
[2022-10-26] MEDS: ERTAPENEM SODIUM 1,000 MG in SYRINGE 0 ML IV SCH (16:30)
[2022-10-26] MEDS: amLODIPine BESYLATE 5 MG TAB PO SCH (21:00)
[2022-10-26] MEDS: MIRTAZAPINE TAB 15 MG TAB PO SCH (21:02)
[2022-10-27] MEDS: LEVOTHYROXINE SODIUM 50 MCG TABLET PO SCH (05:32)
[2022-10-27 07:04] LABS: Hematocrit (blood only) 34.4 % (42.0-52.0); Hemoglobin 11.5 g/dl (14.0-18.0); Mean Corpuscular Hgb Conc 33.4 g/dL (32.0-36.0); Mean Corpuscular Volume 83.9 fL (80.0-100.0); Platelet Count 198 K/uL (130-400); RDW Coefficient of Variation 13.8 % (11.5-14.5); RDW Standard Deviation 42.3 fL (36.4-46.3); White Blood Count 7.24 K/ul (4.8-10.8)
[2022-10-27 07:24] LABS: Calcium 8.1 mg/dl (8.5-10.1); Magnesium 1.8 mg/dl (1.7-2.4); Potassium 3.4 mmol/L (3.5-5.1)
[2022-10-27 07:30] LABS: BUN Creatinine Ratio 14.3 (10-20); Creatinine Clr Calc Pharmacy 62.2 ml/min; Est GFR (African American) 92.5 ml/min; Est GFR (Non-African American) 79.8 ml/min
[2022-10-27] MEDS: DONEPEZIL HCL 5 MG TAB PO SCH (08:18)
[2022-10-27] MEDS: lisinopril 10 MG TAB PO SCH (08:18)
[2022-10-27] MEDS: hydrALAZINE HCL 25 MG TAB PO SCH ×3 (08:18→20:55)
[2022-10-27] MEDS: PANTOprazole 40 MG TAB PO SCH (08:19)
[2022-10-27] MEDS: TAMSULOSIN HCL 0.4 MG CAP PO SCH (08:19)
[2022-10-27] MEDS: POTASSIUM CHLORIDE / WTR 10 MEQ/100 ML PLCT IV SCH ×2 (08:30→09:35)
[2022-10-27] MEDS: ENOXAPARIN INJ 40 MG/0.4 ML SYR SQ SCH (13:00)
--- NOTE | 2022-10-27 14:18 | Hospitalist Progress Note ---
Date of Service October 27, 2022 Assessment & Plan (1) Sepsis: Plan 87-year-old male with PMH of severe dementia, pancreatic adenocarcinoma status post cholecystoduodenostomy with stent, hypothyroidism, HTN, GERD, aspiration was admitted 10/22 after a fall and altered mental status, [facility] Of note, admitting attending spoke with patient's POA Iqra Torres (friend) who noted patient is DNR/DNI and no invasive procedure [does not want to undergo ERCP even if it is necessary]. Okay with antibiotics. Patient's daughter lives in [place]. The patient is being managed for the following: Sepsis POA Likely metabolic encephalopathy Bacteremia Patient [facility] for evaluation after fall and AMS. At presentation, patient was febrile at 39.3, tachycardic, elevated procalcitonin, normal lactic acid/stable BP. Admitting CT head with no acute findings. Imagings/evaluation confirmed infection like cholecystitis/cholangitis/aspiration pneumonia. Admitting blood culture result reviewed 10/25; Repeat blood culture 10/23 - NG 48 hours. Afebrile since 10/23. Monitor and replete electrolytes. Treatment--- manage underlying condition Pt is AO to self and place. ID evaled, continue current antibiotic pending finalization of blood culture --->> re d/w id 10/25, DC'd other atb, put him on ertapenem 10/25 Aspiration pneumonia: History of aspiration, admitting CTAP with patchy densities at the lung bases most pronounced within the right lower lobe, suggestive of pneumonia. Admitting RSV/COVID/flu negative. Speech evaluated, alternate solids and liquids once patient able to be advanced on his thickened clear liquid diet for his cholecystitis status. Patient on antibiotics, see below. Cholangitis Cholecystitis Admitting CTAP: Pancreatic fullness indicating patient's own history of pancreatic malignancy. Concern for ascending cholangitis. Metallic CBD stent in good position, evidence for pneumobilia. Concern for acute cholecystitis. Dilated main pancreatic duct measuring up to 9 mm. Mild retrocrural lymphadenopathy has progressed. Admitting LFT, fairly WNL. History of pancreatic adenocarcinoma status post CBD stent 03/2022. Continue with vancomycin and Zosyn at admission ----> 10/23 cefepime, 10/22 vancomycin, 10/23 metronidazole --> ertapenem only from 10/25. Advance diet as tolerated. General surgery and GI evaluated, appreciate recs. Demand ischemia, NSTEMI type II: Admitting troponin elevated, likely secondary to sepsis, patient with no chest pain, EKG reviewed, no acute ST or T changes. 10/22 echo with mild concentric LVH, LV systolic function normal, EF 60 to 65%, left ventricular wall motion normal, right ventricular systolic function normal. Hypertensive urgency: likely 2/2 acute illness, amlod added and lisinopril uptitrated, prn bp meds on board, RN to use them when appropriate. Hydralazine tid added. BP better controlle.d Status post fall: Patient does have a history of fall in the past, denies any acute pain, CT head at admission with no acute finding, PT/OT. Other chronic medical conditions: Severe dementia with history of aspiration [baseline AAO x1], history of, pancreatic cancer status post cholecystoduodenostomy with a stent delirium --->> resume home meds as and when able. Family and POA did not want further testing or intervention. Pt w/ poor appetite, and has poor prognosis due to overall comorbidities including pancreatic cancer and chronic aspiration. Called patient's daughter Hamilton over the phone 10/24, updated about patient's current status and poor prognosis associated with his pancreatic cancer and history of aspiration leading to recurrent infections/recurrent hospitalization. Discussed goals of care, she expressed interest in hospice evaluation and possible care under hospice upon discharge. manager storage consulted for hospice eval. Total time spent during phone call was around 12-minute. Called patient's friend and POA Iqra 10/26, explained about the current status of the patient, she mentioned that she has discussed with patient's daughter Hamilton and are looking for hospice care for the patient. She was made aware what hospice care entails and she seemed inclined towards hospice for Abdiel nathaniel ferguson ld like to again confirm with patient's daughter Hamilton and will get back to us at the hospital. She is aware that hospice care may mean discontinuing of his iv antibiotic Rx. Disposition: to assist with DC planning, likely hospice on DC. Admission and Anticipated Discharge Date Admission Date: October 22, 2022 Subjective Patient seen and examined at bedside as a follow-up of sepsis POA, cholangitis, cholecystitis, aspiration pneumonia and elevated troponin/type II NSTEMI. Of note patient was recently diagnosed with pancreatic adenocarcinoma and according to POLST form, patient is comfort measures only. Patient was lying in bed, on room air, NAD, blood pressure getting better controlled, is on thickened liquid diet, denies any pain, denies any headache or dizziness. Today pt is sleepy and is not much engaged in discussion though w/ c lear articulation when speaking. Physical Exam Physical Exam: GENERAL: Alert and awake. NAD, on RA. Appears ill/frail/weak. HEENT: No pallor, no icterus. Pupils equal, round and reactive to light. Oral mucosa moist. NECK: No JVD, no neck masses. HEART: S1 and S2 heard. Regular rate and rhythm. Systolic murmur at aortic greater than pulmonic area, no gallop. RESPIRATORY SYSTEM: Normal AP diameter. No accessory muscle use. No wheezing, right greater than left lung crackles. ABDOMEN: Soft, bowel sounds present, nontender, no distention. CENTRAL NERVOUS SYSTEM: No facial droop. Speech is clear. Obeys simple commands. Moves extremities. EXTREMITIES: No edema, no erythema seen. Urinary catheter with yellow urine collection noted. Results & Data Results & Data ([facility]) Vital Signs (Past 12 Hours) Vital Signs Temp Pulse Pulse Resp BP BP Pulse Ox 10/27/22 12:30 37.0 C 61 17 166/75 H 92 10/27/22 09:57 62 10/27/22 09:57 10/27/22 07:36 36.8 C 74 17 167/75 H 91 10/27/22 04:14 37.0 C 66 18 153/74 H 92 O2 Del Method 10/27/22 12:30 Room Air 10/27/22 09:57 10/27/22 09:57 Room Air 10/27/22 07:36 Room Air 10/27/22 04:14 Room Air
[2022-10-27] MEDS: ERTAPENEM SODIUM 1,000 MG in SYRINGE 0 ML IV SCH (16:30)
[2022-10-27] MEDS: MIRTAZAPINE TAB 15 MG TAB PO SCH (20:52)
[2022-10-27] MEDS: amLODIPine BESYLATE 5 MG TAB PO SCH (20:53)
[2022-10-27] MEDS ORDERED: amLODIPine BESYLATE 5 MG TAB PO ONE (23:08)
[2022-10-28] MEDS: hydrALAZINE TAB 50 MG TAB PO SCH ×3 (04:38→21:44)
[2022-10-28] MEDS: LEVOTHYROXINE SODIUM 50 MCG TABLET PO SCH (05:36)
[2022-10-28] MEDS: lisinopril 10 MG TAB PO SCH (09:24)
[2022-10-28] MEDS: DONEPEZIL HCL 5 MG TAB PO SCH (09:25)
[2022-10-28] MEDS: TAMSULOSIN HCL 0.4 MG CAP PO SCH (09:25)
[2022-10-28] MEDS: PANTOprazole 40 MG TAB PO SCH (09:26)
[2022-10-28] MEDS: ENOXAPARIN INJ 40 MG/0.4 ML SYR SQ SCH (11:34)
--- NOTE | 2022-10-28 15:28 | Hospitalist Progress Note ---
Date of Service October 28, 2022 Assessment & Plan (1) Sepsis: Plan 87-year-old male with PMH of severe dementia, pancreatic adenocarcinoma status post cholecystoduodenostomy with stent, hypothyroidism, HTN, GERD, aspiration was admitted 10/22 after a fall and altered mental status, [facility] Of note, admitting attending spoke with patient's POA Iqra Torres (friend) who noted patient is DNR/DNI and no invasive procedure [does not want to undergo ERCP even if it is necessary]. Okay with antibiotics. Patient's daughter lives in [place]. The patient is being managed for the following: Sepsis POA Likely metabolic encephalopathy Bacteremia Patient presented from [facility] for evaluation after fall and AMS. At presentation, patient was febrile at 39.3, tachycardic, elevated procalcitonin, normal lactic acid/stable BP. Admitting CT head with no acute findings. Imagings/evaluation confirmed infection like cholecystitis/cholangitis/aspiration pneumonia. Admitting blood culture result reviewed 10/25; Repeat blood culture 10/23 - NG 5 days. Afebrile since 10/23. Monitor and replete electrolytes. Treatment--- manage underlying condition Pt is AO to self and place. ID evaled, continue current antibiotic pending finalization of blood culture --->> re d/w id 10/25, DC'd other atb, put him on ertapenem 10/25 Aspiration pneumonia: History of aspiration, admitting CTAP with patchy densities at the lung bases most pronounced within the right lower lobe, suggestive of pneumonia. Admitting RSV/COVID/flu negative. Speech evaluated, alternate solids and liquids once patient able to be advanced on his thickened clear liquid diet for his cholecystitis status. Patient on antibiotics, see below. Cholangitis Cholecystitis Admitting CTAP: Pancreatic fullness indicating patient's own history of pancreatic malignancy. Concern for ascending cholangitis. Metallic CBD stent in good position, evidence for pneumobilia. Concern for acute cholecystitis. Dilated main pancreatic duct measuring up to 9 mm. Mild retrocrural lymphadenopathy has progressed. Admitting LFT, fairly WNL. History of pancreatic adenocarcinoma status post CBD stent 03/2022. Continue with vancomycin and Zosyn at admission ----> 10/23 cefepime, 10/22 vancomycin, 10/23 metronidazole --> ertapenem only from 10/25. Advance diet as tolerated. General surgery and GI evaluated, appreciate recs. Demand ischemia, NSTEMI type II: Admitting troponin elevated, likely secondary to sepsis, patient with no chest pain, EKG reviewed, no acute ST or T changes. 10/22 echo with mild concentric LVH, LV systolic function normal, EF 60 to 65%, left ventricular wall motion normal, right ventricular systolic function normal. Hypertensive urgency: likely 2/2 acute illness, amlod added and lisinopril uptitrated, prn bp meds on board, RN to use them when appropriate. Hydralazine tid added. BP better controlle.d Status post fall: Patient does have a history of fall in the past, denies any acute pain, CT head at admission with no acute finding, PT/OT. Other chronic medical conditions: Severe dementia with history of aspiration [baseline AAO x1], history of, pancreatic cancer status post cholecystoduodenostomy with a stent delirium --->> resume home meds as and when able. Family and POA did not want further testing or intervention. Pt w/ poor appetite, and has poor prognosis due to overall comorbidities including pancreatic cancer and chronic aspiration. Called patient's daughter Hamilton over the phone 10/24, updated about patient's current status and poor prognosis associated with his pancreatic cancer and history of aspiration leading to recurrent infections/recurrent hospitalization. Discussed goals of care, she expressed interest in hospice evaluation and possible care under hospice upon discharge. survey project manager consulted for hospice eval. Total time spent during phone call was around 12-minute. Called patient's friend and POA Iqra 10/26, explained about the current status of the patient, she mentioned that she has discussed with patient's daughter Hamilton and are looking for hospice care for the patient. She was made aware what hospice care entails and she seemed inclined towards hospice for Abdiel but woul d like to again confirm with patient's daughter Hamilton and will get back to us at the hospital. She is aware that hospice care may mean discontinuing of his iv antibiotic Rx. Disposition: CM to assist with DC planning, dc to hospice norm. Admission and Anticipated Discharge Date Admission Date: October 22, 2022 Subjective Patient seen and examined at bedside as a follow-up of sepsis POA, cholangitis, cholecystitis, aspiration pneumonia and elevated troponin/type II NSTEMI. Of note patient was recently diagnosed with pancreatic adenocarcinoma and according to POLST form, patient is comfort measures only. Patient was lying in bed, on room air, NAD, blood pressure getting better controlled, is on thickened liquid diet, denies any pain, denies any headache or dizziness. Per RN, pt eating better, no issues overnight. Physical Exam Physical Exam: GENERAL: Alert and awake. NAD, on RA. Appears ill/frail/weak. HEENT: No pallor, no icterus. Pupils equal, round and reactive to light. Oral mucosa moist. NECK: No JVD, no neck masses. HEART: S1 and S2 heard. Regular rate and rhythm. Systolic murmur at aortic greater than pulmonic area, no gallop. RESPIRATORY SYSTEM: Normal AP diameter. No accessory muscle use. No wheezing, right greater than left lung crackles. ABDOMEN: Soft, bowel sounds present, nontender, no distention. CENTRAL NERVOUS SYSTEM: No facial droop. Speech is clear. Obeys simple commands. Moves extremities. EXTREMITIES: No edema, no erythema seen. Urinary catheter with yellow urine collection noted. Results & Data Results & Data ([facility]) Vital Signs (Past 12 Hours) Vital Signs Temp Pulse Pulse Resp BP BP Pulse Ox 10/28/22 12:29 36.8 C 71 18 149/70 H 93 10/28/22 10:15 67 10/28/22 09:52 10/28/22 08:27 36.7 C 67 18 153/68 H 92 10/28/22 04:00 36.8 C 68 16 172/73 H 93 O2 Del Method 10/28/22 12:29 Room Air 10/28/22 10:15 10/28/22 09:52 Room Air 10/28/22 08:27 Room Air 10/28/22 04:00 Room Air
[2022-10-28] MEDS: ERTAPENEM SODIUM 1,000 MG in SYRINGE 0 ML IV SCH (16:53)
[2022-10-28] MEDS ORDERED: amLODIPine BESYLATE 5 MG TAB PO SCH (21:00)
[2022-10-28] MEDS: MIRTAZAPINE TAB 15 MG TAB PO SCH (21:43)
[2022-10-29] MEDS: LEVOTHYROXINE SODIUM 50 MCG TABLET PO SCH (06:07)
[2022-10-29] MEDS: PANTOprazole 40 MG TAB PO SCH (08:25)
[2022-10-29] MEDS: lisinopril 10 MG TAB PO SCH (08:26)
[2022-10-29] MEDS: hydrALAZINE TAB 50 MG TAB PO SCH ×2 (08:26→14:05)
[2022-10-29] MEDS: DONEPEZIL HCL 5 MG TAB PO SCH (08:26)
[2022-10-29] MEDS: TAMSULOSIN HCL 0.4 MG CAP PO SCH (08:26)
[2022-10-29] MEDS: ENOXAPARIN INJ 40 MG/0.4 ML SYR SQ SCH (11:32)
--- NOTE | 2022-10-29 13:18 | Discharge Summary ---
Date of Service October 29, 2022 Admission HPI Per Admitting Provider 87-year-old male with PMH dementia, pancreatic adenocarcinoma, hypothyroidism, HTN, GERD, and other problems listed below who presents to the ED for evaluation after fall and altered mental status. Patient currently resides at [facility]. Due to underlying dementia, history is limited from the patient. History obtained from review of outpatient records and halfway staff. Patient had an unwitnessed fall at the facility. He was noticed to have increased confusion from baseline. There was also fever, nausea, vomiting reported. EMS was called and patient was brought to the ED for further evaluation. In the ED, patient is slightly febrile at 39.3, mildly tachycardic in the low 100s. No leukocytosis, lactic acid normal. HS troponin 383, procalcitonin 28.5. No obvious infectious source identified at this time. Patient was given Tylenol, cefepime, Vanco, IVF. Admission Exam Per Admitting Provider Constitutional:WD/WN, vitals as aboveEyes:PERRL, conjunctivae normal, anicteric scleraeENMT:Ears: no external ear abnormality Nose: no external nose abnormality Mouth: + dry oral mucous membranesRespiratory:normal respiratory effort, lungs clear to auscultationCardiovascular:Rate/Rhythm: regular rate and regular rhythm Vessels: normal peripheral pulses Extremities: + edema (+1 edema BLE)Gastrointestinal (Abdomen):normal bowel sounds, soft, nontender, no hepatosplenomegalyMusculoskeletal:Extremities: no cyanosis and no clubbing Generally weak throughoutSkin:no rashes, warm and dry Chronic venous changes BLENeurologic:PERRL, EOMI, accommodation nl, no face palsy, no dysarthriaPsychiatric:Orientation: alert and oriented to person; + not oriented to place and + not oriented to time Affect: euthymic affect Principal Diagnosis Sepsis POA Metabolic encephalopathy Bacteremia Aspiration pneumonia Cholangitis Cholecystitis Hypertensive urgency Demand ischemia, NSTEMI type II Discharge Exam GENERAL: Alert and awake. NAD, on RA. Appears ill/frail/weak. HEENT: No pallor, no icterus. Pupils equal, round and reactive to light. Oral mucosa moist. NECK: No JVD, no neck masses. HEART: S1 and S2 heard. Regular rate and rhythm. Systolic murmur at aortic greater than pulmonic area, no gallop. RESPIRATORY SYSTEM: Normal AP diameter. No accessory muscle use. No wheezing, right greater than left lung crackles. ABDOMEN: Soft, bowel sounds present, nontender, no distention. CENTRAL NERVOUS SYSTEM: No facial droop. Speech is clear. Obeys simple commands. Moves extremities. EXTREMITIES: No edema, no erythema seen. Urinary catheter with yellow urine collection noted. Discharge Data Allergies Allergy/AdvReac Type Severity Reaction Status Date / Time No Known Allergies Allergy Unverified 12/09/16 06:36 Consultations 10/22/22 07:56 ED Decision to Admit Stat 10/22/22 15:31 Consult Gastroenterology Routine Consult General Surgery Routine 10/23/22 08:08 Consult Infectious Diseases Routine Ordered Studies 10/22/22 08:59 CT Abd and Pelvis [CT abd pelvis IV con only] Urgent 10/22/22 09:[address] [CT head/brain wo con] Urgent Hospital Course (1) Sepsis: Plan 87-year-old male with PMH of severe dementia, pancreatic adenocarcinoma status post cholecystoduodenostomy with stent, hypothyroidism, HTN, GERD, aspiration was admitted 10/22 after a fall and altered mental status, patient is from [facility]. Of note, admitting attending spoke with patient's POA Iqragilbert Torres (friend) who noted patient is DNR/DNI and no invasive procedure [does not want to undergo ERCP even if it is necessary]. Okay with antibiotics. Patient's daughter lives in [place]. He was managed for the following: Sepsis POA Likely metabolic encephalopathy Bacteremia Patient presented from [facility] for evaluation after fall and AMS. At presentation, patient was febrile at 39.3, tachycardic, elevated p rocalcitonin, normal lactic acid/stable BP. Admitting CT head with no acute findings. Imagings/evaluation confirmed infection like cholecystitis/cholangitis/aspiration pneumonia. Admitting blood culture result reviewed 10/25; Repeat blood culture 10/23 - NG 5 days. Afebrile since 10/23. Treatment--- manage underlying condition Pt is AO to self and place. ID evaled, continue current antibiotic pending finalization of blood culture --->> re d/w id 10/25, DC'd other atb, put him on ertapenem 10/25 --> since being DC'd on hospice, will need po atb, hence on bactrim and augmentin per d/w ID 10/29 for 3 weeks. Since the source control can't happen for patient by pt's choice/comorbities, the chances of recurring infection is there, which the POA and dtr hamilton is aware of. Aspiration pneumonia: History of aspiration, admitting CTAP with patchy densities at the lung bases most pronounced within the right lower lobe, suggestive of pneumonia. Admitting RSV/COVID/flu negative. Speech evaluated, alternate solids and liquids once patient able to be advanced on his thickened clear liquid diet for his cholecystitis status. Patient on antibiotics, see above. Cholangitis Cholecystitis Admitting CTAP: Pancreatic fullness indicating patient's own history of pancreatic malignancy. Concern for ascending cholangitis. Metallic CBD stent in good position, evidence for pneumobilia. Concern for acute cholecystitis. Dilated main pancreatic duct measuring up to 9 mm. Mild retrocrural lymphadenopathy has progressed. Admitting LFT, fairly WNL. History of pancreatic adenocarcinoma status post CBD stent 03/2022. Continue with vancomycin and Zosyn at admission ----> 10/23 cefepime, 10/22 vancomycin, 10/23 metronidazole --> ertapenem only from 10/25 ---> bactrim and augmentin on DC. Advance diet as tolerated. General surgery and GI evaluated, appreciate recs. Demand ischemia, NSTEMI type II: Admitting troponin elevated, likely secondary to sepsis, patient with no chest pain, EKG reviewed, no acute ST or T changes. 10/22 echo with mild concentric LVH, LV systolic function normal, EF 60 to 65%, left ventricular wall motion normal, right ventricular systolic function normal. Hypertensive urgency: likely 2/2 acute illness, amlod added and lisinopril uptitrated Hydralazine tid added. BP better controlle.d Status post fall: Patient does have a history of fall in the past, denies any acute pain, CT head at admission with no acute finding, PT/OT. Other chronic medical conditions: Severe dementia with history of aspiration [baseline AAO x1], history of, pancreatic cancer status post cholecystoduodenostomy with a stent delirium --->> resume home meds as and when able. Family and POA did not want further testing or intervention. Pt w/ poor appetite, and has poor prognosis due to overall comorbidities including pancreatic cancer and chronic aspiration. Patient being discharged to [facility] with hospice with following instruction at the point of discharge: You are being discharged to medical facility under hospice care. You will be discharged on couple of weeks worth of antibiotics on p.o. forms to complete the course of treatment for the current infection. But given that you have advanced pancreatic adenocarcinoma/chronic aspiration, the chances of infection recurring is high as has been discussed with your POA and Dtpretty Villasenor. Your care will be taken over by hospice once you are discharged to the facility, advise to follow- up with their recommendations. If you fail voiding trial while in hospital, you will be discharged with wilson catheter. You can undergo voiding trial in 3-5 days again at [facility] to assess if you can come off of wilson catheter. Home Health Attestation I certify that this patient is under my care and that I, or a physicians compliance assistant working with me, had a face to-face encounter that meets the home health [id number] encounter requirements with this patient. The encounter with the patient was in whole, or in part, for the following medical condition, which is the primary reason for home health care (list medical condition): I certify that, based on my findings, the following services are medically necessary home health services: My clinical findings support the need for the above services because: Further, I certify that my clinical findings support that this patient is homebound (i.e. absences from home require considerable and taxing effort and are for medical reasons or episcopalian services or infrequently or of short duration when for other reasons) because: Certification for Home Health Services: Based on the above findings, I certify that this patient is confined to the home and needs intermittent senior living care, physical therapy and/or speech therapy or continues to need occupational therapy. The patient is under my care, and I have initiated the establishment of the plan of care. This patient will be followed by a physician who will periodically review the plan of care. Total Time Total Time Spent Total Time Spent (In Minutes): 45 Discharge Plan Discharge Items Patient Disposition: Hospice - Medical Facility Reason For Visit: SEPSIS Discharge Diagnosis: Sepsis POA Metabolic encephalopathy Bacteremia Aspiration pneumonia Cholangitis Cholecystitis Hypertensive urgency Demand ischemia, NSTEMI type II Activity: Resume your previous activity Non-emergency contact: Primary Care Provider Call non-emergency contact if: you have any medication questions Follow-up/Referrals: Abigail Nair CRNP [Primary Care Provider] - Diet: Regular Diet Texture: Pureed (blended smooth) Liquid Consistency: Honey thick Addtl Attending Provider Instructions: You are being discharged to medical facility under hospice care. You will be discharged on couple of weeks worth of antibiotics on p.o. forms to complete the course of treatment for the current infection. But given that you have advanced pancreatic adenocarcinoma/chronic aspiration, the chances of infection recurring is high as has been discussed with your POA and Dtr Hamilton. Your care will be taken over by hospice once you are discharged to the facility, advise to follow- up with their recommendations. If you fail voiding trial while in hospital, you will be discharged with wilson catheter. You can undergo voiding trial in 3-5 days again at SNF to assess if you can come off of wilson catheter. Pending Studies at Discharge: No Stand-Alone Forms: My [facility] Skilled Items Patient informed of condition?: Yes DNR: Yes Discharge Level of Care: Other Communicable Disease: No Discharge Prognosis: Deteriorating Lines: None Urinary Catheter: No (Conditional, can do voiding trial at SNF if fails here. ) Medications and DC Order Prescriptions: New lisinopril 10 mg Tablet 30 mg PO DAILY Qty: 90 0RF amlodipine [Norvasc] 5 mg Tablet 10 mg PO HS Qty: 60 0RF hydralazine 50 mg Tablet 50 mg PO TID Qty: 90 0RF amoxicillin-pot clavulanate 875-125 mg tablet 1 tab PO BID 21 Days Qty: 42 0RF sulfamethoxazole-trimethoprim [Bactrim DS] 800-160 mg tablet 1 tab PO BID 21 Days Qty: 42 0RF Probiotic 3 billion cell capsule 3,000 mmu cells PO DAILY 21 Days Qty: 21 0RF Rx Instructions: administer with a meal Continued donepezil 5 mg tablet 5 mg PO DAILY potassium 99 mg Tablet 99 mg PO DAILY tamsulosin 0.4 mg capsule 0.4 mg PO DAILY levothyroxine 50 mcg tablet 50 mcg PO DAILY pantoprazole 40 mg tablet,delayed release (DR/EC) 40 mg PO DAILY Certa-Jesus Tablet 1 tab PO DAILY mirtazapine 7.5 mg tablet 7.5 mg PO HS cholecalciferol (vitamin D3) [Vitamin D3] 50 mcg (2,000 unit) Tablet 50 mcg PO DAILY Discontinued lisinopril 5 mg tablet 5 mg PO DAILY Discharge Orders: Discharge Order (Routine); Ordered 10/29/22 Ordered By: Olive Jean Admission Data Admit Date/Time: 10/22/22 08:58 Attending Provider: Olive Jean Admit Provider: Timbo Rodriguez Primary Care Provider: Abigail Nair Other Providers: Timbo Rodriguez ; Maggie Reyes ; Tan Buckley ; John Weiss ; Blanca Wood ; Sandor Garcia I. ; Shaun Casillas II ; Amy Serrano ; Ricci Adkins ; Abdiel Licea ; Loretta Mccullough
== END 2022-10-29 15:14 | disposition hospice, inpatient (51) | DRG 871 ==
LOC: ED 05:51 → SUATTDRO 08:58 → 2N 08:58 → 4W 10-24 00:41